=== PATIENT | male | born 1945 | race Caucasian/White ===

== ENCOUNTER 2017-08-05 09:32 | Inpatient (IN) ==
[2017-08-05] MEDS ORDERED: VANCOMYCIN INJ 1,000 MG in SODIUM CHLORIDE 0.9% 250 ML IV ONE (10:00)
[2017-08-05] MEDS ORDERED: diphenhydrAMINE CAP 25 MG CAPSULE PO ONE (10:00)
[2017-08-05] MEDS ORDERED: VANCOMYCIN 500 MG VIAL IRRIG ONE (10:00)
[2017-08-05] MEDS ORDERED: DIAZEPAM 5 MG TABLET PO ONE (10:00)
[2017-08-05] MEDS ORDERED: SODIUM CHLORIDE 0.9% 1,000 ML IV SCH ×2 (10:00)
[2017-08-05] MEDS ORDERED: diphenhydrAMINE CAP 25 MG CAPSULE ONE (12:58)
[2017-08-05] MEDS ORDERED: DIAZEPAM 5 MG TABLET ONE (12:58)
[2017-08-05] MEDS ORDERED: LIDOCAINE 1% 20 ML VIAL ONE (13:13)
[2017-08-05] MEDS ORDERED: VANCOMYCIN 500 MG VIAL ONE ×2 (13:17→13:57)
[2017-08-05] MEDS ORDERED: MIDAZOLAM 2 MG/2 ML VIAL ONE (13:29)
[2017-08-05] MEDS ORDERED: fentaNYL 100 MCG/2 ML VIAL ONE (13:29)
[2017-08-05] MEDS ORDERED: TISSUE ADHESIVE 1 EACH APPLICATOR TOP ONE (14:44)
[2017-08-05] MEDS ORDERED: ACETAMINOPHEN 325 MG TABLET PO PRN (15:02)
[2017-08-05] MEDS ORDERED: ALUMINUM/MAGNES/SIMETH MAX STR 30 ML UDCUP PO PRN (15:03)
[2017-08-05] MEDS ORDERED: ZALEPLON 5 MG CAPSULE PO PRN (15:03)
[2017-08-05] MEDS ORDERED: MAGNESIUM HYDROXIDE SUSP 30 ML UDCUP PO PRN (16:28)
[2017-08-05] MEDS ORDERED: ONDANSETRON 4 MG/2 ML VIAL IV PRN (16:29)
[2017-08-05] MEDS ORDERED: diphenhydrAMINE CAP 25 MG CAPSULE PO PRN (16:29)
[2017-08-05] MEDS: CALCIUM (CARBONATE) 600 MG TABLET PO SCH (16:53)
[2017-08-05] MEDS: AMIODARONE 200 MG TABLET PO SCH (21:48)
[2017-08-05] MEDS: AMITRIPTYLINE 75 MG TABLET PO SCH (21:49)
[2017-08-05] MEDS: DOCUSATE SODIUM 100 MG CAPSULE PO SCH (21:49)
[2017-08-05] MEDS: APIXABAN 5 MG TABLET PO SCH (21:49)
[2017-08-05] MEDS: POTASSIUM CITRATE 10 MEQ TABLET PO SCH (21:49)
[2017-08-05] MEDS: CARVEDILOL 6.25 MG TABLET PO SCH (21:49)
[2017-08-06] MEDS ORDERED: PHENOL 1.4% THROAT SPRAY 177 ML BOTTLE PO PRN (01:49)
[2017-08-06] MEDS ORDERED: CETIRIZINE 10 MG TABLET PO PRN (01:49)
[2017-08-06] MEDS ORDERED: OXYMETAZOLINE 0.05% NASAL SPRAY 15 ML BOTTLE BOTH NARES PRN (01:49)
[2017-08-06] MEDS: CALCIUM (CARBONATE) 600 MG TABLET PO SCH ×2 (08:44→19:08)
[2017-08-06] MEDS: PRAVASTATIN 40 MG TABLET PO SCH (08:45)
[2017-08-06] MEDS: FUROSEMIDE 40 MG TABLET PO SCH (08:45)
[2017-08-06] MEDS: ASPIRIN EC 81 MG TABLET PO SCH (08:45)
[2017-08-06] MEDS: OMEGA 3 ACID ETHYL ESTERS 1 GM CAPSULE PO SCH (08:45)
[2017-08-06] MEDS: DOCUSATE SODIUM 100 MG CAPSULE PO SCH ×2 (08:45→22:12)
[2017-08-06] MEDS: DILTIAZEM CD 180 MG CAPSULE PO SCH (08:45)
[2017-08-06] MEDS: AMIODARONE 200 MG TABLET PO SCH ×2 (08:45→22:12)
[2017-08-06] MEDS: MONTELUKAST 10 MG TABLET PO SCH (08:45)
[2017-08-06] MEDS: POTASSIUM CITRATE 10 MEQ TABLET PO SCH ×2 (08:45→22:13)
[2017-08-06] MEDS: DIGOXIN 0.125 MG TABLET PO SCH (08:45)
[2017-08-06] MEDS: PANTOPRAZOLE 40 MG TABLET PO SCH (08:45)
[2017-08-06] MEDS: CARVEDILOL 6.25 MG TABLET PO SCH ×2 (08:45→22:13)
[2017-08-06] MEDS: LISINOPRIL 10 MG TABLET PO SCH (08:45)
[2017-08-06] MEDS: CELECOXIB 200 MG CAPSULE PO SCH (08:46)
[2017-08-06] MEDS: FOLIC ACID 1 MG TABLET PO SCH (08:46)
[2017-08-06] MEDS: MULTIVITAMIN (CENTRUM) TABLET PO SCH (08:46)
[2017-08-06] MEDS: APIXABAN 5 MG TABLET PO SCH ×2 (08:46→22:12)
[2017-08-06] MEDS: FLUTICASONE 50 MCG NASAL SPRAY 16 GM BOTTLE BOTH NARES SCH (12:05)
[2017-08-06] MEDS ORDERED: MORPHINE 4 MG/1 ML VIAL IV PRN (17:09)
[2017-08-06] MEDS: AMITRIPTYLINE 75 MG TABLET PO SCH (22:13)
[2017-08-07 03:48] LABS: Basophils % 0.3 % (0.0-0.8); Eosinophils # 0.6 10*3/uL (0.0-0.87); Eosinophils % 6.2 % (0.00-10.9); Hematocrit 33.2 VOL% (42.0-52.0); Hemoglobin 11.3 GM/DL (14.0-18.0); Immature Granulocytes % 0.4 %; Immature Granulocytes Absolute 0.04 #; Lymphocytes # 1.8 10*3/uL (1.4-4.0); Lymphocytes % 17.7 % (21.2-54.2); Mean Corpuscular Hemoglobin 30 PG (27-34); Mean Platelet Volume 11.4 FL (9.6-12.0); Monocytes % 10.1 % (1.7-12.7); Neutrophils # 6.7 10*3/uL (1.4-7.4); Neutrophils % 65.3 % (38.7-73.9); Platelet Count 210 T/CUMM (130-400); Red Blood Count 3.73 MC/CUMM (3.8-5.5); Red Cell Distribution Width 12.9 % (9.3-17.3); White Blood Count 10.3 T/CUMM (4-12)
[2017-08-07 04:12] LABS: Calcium 8.4 MG/DL (8.5-10.1); Osmolality,Calculated 282.4 MOS/KG (273-304)
[2017-08-07] MEDS: AMIODARONE 200 MG TABLET PO SCH ×2 (09:06→21:03)
[2017-08-07] MEDS: POTASSIUM CITRATE 10 MEQ TABLET PO SCH ×2 (09:06→21:03)
[2017-08-07] MEDS: CALCIUM (CARBONATE) 600 MG TABLET PO SCH ×2 (09:06→16:44)
[2017-08-07] MEDS: MULTIVITAMIN (CENTRUM) TABLET PO SCH (09:06)
[2017-08-07] MEDS: FUROSEMIDE 40 MG TABLET PO SCH (09:07)
[2017-08-07] MEDS: CELECOXIB 200 MG CAPSULE PO SCH (09:07)
[2017-08-07] MEDS: MONTELUKAST 10 MG TABLET PO SCH (09:07)
[2017-08-07] MEDS: DOCUSATE SODIUM 100 MG CAPSULE PO SCH ×2 (09:07→21:03)
[2017-08-07] MEDS: PANTOPRAZOLE 40 MG TABLET PO SCH (09:07)
[2017-08-07] MEDS: OMEGA 3 ACID ETHYL ESTERS 1 GM CAPSULE PO SCH (09:07)
[2017-08-07] MEDS: ASPIRIN EC 81 MG TABLET PO SCH (09:07)
[2017-08-07] MEDS: FOLIC ACID 1 MG TABLET PO SCH (09:07)
[2017-08-07] MEDS: PRAVASTATIN 40 MG TABLET PO SCH (09:08)
[2017-08-07] MEDS: DILTIAZEM CD 180 MG CAPSULE PO SCH (09:08)
[2017-08-07] MEDS: APIXABAN 5 MG TABLET PO SCH ×2 (09:08→21:03)
[2017-08-07] MEDS: DIGOXIN 0.125 MG TABLET PO SCH (09:08)
[2017-08-07] MEDS: CARVEDILOL 6.25 MG TABLET PO SCH ×2 (09:08→21:03)
[2017-08-07] MEDS: LISINOPRIL 10 MG TABLET PO SCH (09:08)
[2017-08-07] MEDS: FLUTICASONE 50 MCG NASAL SPRAY 16 GM BOTTLE BOTH NARES SCH (15:42)
[2017-08-07] MEDS: AMITRIPTYLINE 75 MG TABLET PO SCH (21:03)
[2017-08-08] MEDS: DIGOXIN 0.125 MG TABLET PO SCH (09:35)
[2017-08-08] MEDS: MULTIVITAMIN (CENTRUM) TABLET PO SCH (09:35)
[2017-08-08] MEDS: CELECOXIB 200 MG CAPSULE PO SCH (09:35)
[2017-08-08] MEDS: AMIODARONE 200 MG TABLET PO SCH ×2 (09:36→20:24)
[2017-08-08] MEDS: POTASSIUM CITRATE 10 MEQ TABLET PO SCH ×2 (09:36→20:24)
[2017-08-08] MEDS: ASPIRIN EC 81 MG TABLET PO SCH (09:36)
[2017-08-08] MEDS: OMEGA 3 ACID ETHYL ESTERS 1 GM CAPSULE PO SCH (09:36)
[2017-08-08] MEDS: LISINOPRIL 10 MG TABLET PO SCH (09:36)
[2017-08-08] MEDS: MONTELUKAST 10 MG TABLET PO SCH (09:36)
[2017-08-08] MEDS: FUROSEMIDE 40 MG TABLET PO SCH (09:36)
[2017-08-08] MEDS: FOLIC ACID 1 MG TABLET PO SCH (09:36)
[2017-08-08] MEDS: PRAVASTATIN 40 MG TABLET PO SCH (09:36)
[2017-08-08] MEDS: CALCIUM (CARBONATE) 600 MG TABLET PO SCH ×2 (09:36→16:43)
[2017-08-08] MEDS: PANTOPRAZOLE 40 MG TABLET PO SCH (09:36)
[2017-08-08] MEDS: CARVEDILOL 6.25 MG TABLET PO SCH ×2 (09:37→20:24)
[2017-08-08] MEDS: APIXABAN 5 MG TABLET PO SCH ×2 (09:37→20:24)
[2017-08-08] MEDS: DILTIAZEM CD 180 MG CAPSULE PO SCH (09:37)
[2017-08-08] MEDS: DOCUSATE SODIUM 100 MG CAPSULE PO SCH ×2 (09:37→20:24)
[2017-08-08] MEDS: FLUTICASONE 50 MCG NASAL SPRAY 16 GM BOTTLE BOTH NARES SCH (09:50)
[2017-08-08] MEDS: AMITRIPTYLINE 75 MG TABLET PO SCH (20:24)
[2017-08-09] MEDS: DIGOXIN 0.125 MG TABLET PO SCH (08:31)
[2017-08-09] MEDS: ASPIRIN EC 81 MG TABLET PO SCH (08:31)
[2017-08-09] MEDS: CELECOXIB 200 MG CAPSULE PO SCH (08:32)
[2017-08-09] MEDS: AMIODARONE 200 MG TABLET PO SCH ×2 (08:32→20:54)
[2017-08-09] MEDS: OMEGA 3 ACID ETHYL ESTERS 1 GM CAPSULE PO SCH (08:32)
[2017-08-09] MEDS: PANTOPRAZOLE 40 MG TABLET PO SCH (08:32)
[2017-08-09] MEDS: CARVEDILOL 6.25 MG TABLET PO SCH ×2 (08:32→20:54)
[2017-08-09] MEDS: PRAVASTATIN 40 MG TABLET PO SCH (08:32)
[2017-08-09] MEDS: MULTIVITAMIN (CENTRUM) TABLET PO SCH (08:32)
[2017-08-09] MEDS: MONTELUKAST 10 MG TABLET PO SCH (08:32)
[2017-08-09] MEDS: FOLIC ACID 1 MG TABLET PO SCH (08:32)
[2017-08-09] MEDS: DOCUSATE SODIUM 100 MG CAPSULE PO SCH ×2 (08:32→20:53)
[2017-08-09] MEDS: POTASSIUM CITRATE 10 MEQ TABLET PO SCH ×2 (08:32→20:54)
[2017-08-09] MEDS: LISINOPRIL 10 MG TABLET PO SCH (08:32)
[2017-08-09] MEDS: DILTIAZEM CD 180 MG CAPSULE PO SCH (08:33)
[2017-08-09] MEDS: FLUTICASONE 50 MCG NASAL SPRAY 16 GM BOTTLE BOTH NARES SCH (08:33)
[2017-08-09] MEDS: APIXABAN 5 MG TABLET PO SCH ×2 (08:33→20:54)
[2017-08-09] MEDS: CALCIUM (CARBONATE) 600 MG TABLET PO SCH ×2 (08:33→16:26)
[2017-08-09] MEDS: FUROSEMIDE 40 MG TABLET PO SCH (08:33)
[2017-08-09] MEDS: AMITRIPTYLINE 75 MG TABLET PO SCH (20:54)
[2017-08-10] MEDS: DIGOXIN 0.125 MG TABLET PO SCH (09:44)
[2017-08-10] MEDS: APIXABAN 5 MG TABLET PO SCH (09:46)
[2017-08-10] MEDS: FOLIC ACID 1 MG TABLET PO SCH (09:46)
[2017-08-10] MEDS: CELECOXIB 200 MG CAPSULE PO SCH (09:46)
[2017-08-10] MEDS: MONTELUKAST 10 MG TABLET PO SCH (09:46)
[2017-08-10] MEDS: ASPIRIN EC 81 MG TABLET PO SCH (09:46)
[2017-08-10] MEDS: DOCUSATE SODIUM 100 MG CAPSULE PO SCH (09:46)
[2017-08-10] MEDS: CARVEDILOL 6.25 MG TABLET PO SCH (09:47)
[2017-08-10] MEDS: PRAVASTATIN 40 MG TABLET PO SCH (09:47)
[2017-08-10] MEDS: CALCIUM (CARBONATE) 600 MG TABLET PO SCH (09:47)
[2017-08-10] MEDS: PANTOPRAZOLE 40 MG TABLET PO SCH (09:48)
[2017-08-10] MEDS: AMIODARONE 200 MG TABLET PO SCH (09:48)
[2017-08-10] MEDS: LISINOPRIL 10 MG TABLET PO SCH (09:48)
[2017-08-10] MEDS: FUROSEMIDE 40 MG TABLET PO SCH (09:48)
[2017-08-10] MEDS: MULTIVITAMIN (CENTRUM) TABLET PO SCH (09:48)
[2017-08-10] MEDS: OMEGA 3 ACID ETHYL ESTERS 1 GM CAPSULE PO SCH (09:49)
[2017-08-10] MEDS: DILTIAZEM CD 180 MG CAPSULE PO SCH (09:49)
[2017-08-10] MEDS: POTASSIUM CITRATE 10 MEQ TABLET PO SCH (10:05)
[2017-08-10] MEDS: FLUTICASONE 50 MCG NASAL SPRAY 16 GM BOTTLE BOTH NARES SCH (10:07)
[2017-08-10 12:01] VITALS: BP 131/66
== END 2017-08-10 14:30 | disposition home or self-care (01) | DRG 243 ==
LOC: N.CL 09:32 → N.TELEN 15:30 → N.CC 08-06 16:59 → N.TELEN 08-07 11:17
PROVIDERS: ADMIT Internal Medicine Cardiovascular Disease; ATTEND Internal Medicine Cardiovascular Disease

== ENCOUNTER 2020-05-02 11:19 | Observation (INO) ==
[2020-05-02] MEDS ORDERED: SODIUM CHLORIDE 0.9% 500 ML IV STA (11:29)
[2020-05-02 12:17] LABS: Basophils # 0.1 10*3/uL (0.0-0.2); Basophils % 0.6 % (0.0-0.8); Eosinophils % 0.2 % (0.00-10.9); Hematocrit 36.3 VOL% (42.0-52.0); Immature Granulocytes % 6.1 %; Lymphocytes % 6.3 % (21.2-54.2); Mean Corpuscular HGB Conc 33.1 GM/DL (32-36); Mean Platelet Volume 9.4 FL (9.6-12.0); Monocytes % 5.8 % (1.7-12.7); Platelet Count 334 T/CUMM (130-400); Red Blood Count 3.99 MC/CUMM (3.8-5.5); Red Cell Distribution Width 13.5 % (9.3-17.3); White Blood Count 16.4 T/CUMM (4-12)
[2020-05-02 12:28] LABS: INR 1.1; PT Patient Result 11.9 SECS (9.8-11.9); Partial Thromboplastin Time 30.4 SECS (23.9-33.8)
[2020-05-02 12:38] LABS: Alanine Aminotransferase 39 U/L (16-61); Albumin 2.3 G/DL (3.4-5.0); Alkaline Phosphatase 86 U/L (45-117); Aspartate Amino Transferase 45 U/L (0-37); Bilirubin,Total < 0.39 MG/DL (0.2-1.0); Blood Urea Nitrogen 20 MG/DL (7-18); Carbon Dioxide 33 MMOL/L (21-32); Estimated Glom Filtration Rate 71 ML/MIN; Glucose 160 MG/DL (74-106); Osmolality,Calculated 265.8 MOS/KG (273-304); Potassium 4.7 MMOL/L (3.5-5.1); Sodium 130 MMOL/L (136-145)
[2020-05-02] MEDS ORDERED: ONDANSETRON 4 MG/2 ML VIAL IV PRN (12:45)
[2020-05-02] MEDS ORDERED: ACETAMINOPHEN 325 MG TABLET PO PRN (12:45)
[2020-05-02 13:34] LABS: Band Neutrophils 2 % (0-10); Lymphocytes 9 % (20-55); Segmented Neutrophils 86 % (50-85); Total Cells Counted 100
[2020-05-02 13:35] LABS: Reactive Lymphocytes Few
[2020-05-02 13:37] LABS: Hypochromasia Slight; Platelet Estimate Normal
[2020-05-02] MEDS: SODIUM CHLORIDE 0.9% 1,000 ML IV SCH (14:00)
[2020-05-02 17:30] LABS: Bilirubin,Urine Negative (Negative); Blood, Urine Negative (Negative); Glucose,Urine (UA) Negative (Negative); Ketones,Urine Negative (Negative); Mucus,Urine Occasional /LPF (Occasional); Nitrite,Urine Negative (Negative); Protein,Urine Negative; RBC,Urine 2 /HPF (0-4); Urine Appearance CLEAR (Clear); Urine Color Yellow (Yellow); Urine Specific Gravity 1.009 (1.001-1.035); Urine Urobilinogen < 2.0 EU/DL (0.2-1.0); WBC,Urine 2 /HPF (0-6)
[2020-05-02 17:43] LABS: Barbiturates Screen,Urine Negative (Negative); Benzodiazepines Screen,Urine Negative (Negative); Cannabinoid Screen,Urine Negative (Negative); Opiate Screen,Urine Positive (Negative); Phencyclidine Screen,Urine Negative (Negative)
[2020-05-02] MEDS: DOCUSATE SODIUM 100 MG CAPSULE PO SCH ×2 (21:26→21:52)
[2020-05-02] MEDS: AMITRIPTYLINE 75 MG TABLET PO SCH (21:26)
[2020-05-02] MEDS: APIXABAN 5 MG TABLET PO SCH (21:26)
[2020-05-02] MEDS: POTASSIUM CITRATE 10 MEQ TABLET PO SCH (21:26)
[2020-05-02] MEDS: AMIODARONE 200 MG TABLET PO SCH (21:52)
[2020-05-02] MEDS: carvediloL 6.25 MG TABLET PO SCH (21:52)
[2020-05-03] MEDS: ALBUTEROL/IPRATROPIUM 3 ML NEB RESP TX SCH ×4 (01:10→19:18)
[2020-05-03 06:05] LABS: Basophils # 0.1 10*3/uL (0.0-0.2); Basophils % 0.8 % (0.0-0.8); Eosinophils # 0.2 10*3/uL (0.0-0.87); Eosinophils % 1.5 % (0.00-10.9); Hematocrit 28.1 VOL% (42.0-52.0); Immature Granulocytes % 6.8 %; Lymphocytes # 1.8 10*3/uL (1.4-4.0); Lymphocytes % 13.6 % (21.2-54.2); Mean Corpuscular HGB Conc 34.2 GM/DL (32-36); Mean Corpuscular Volume 89.5 FL (87-102); Mean Platelet Volume 9.6 FL (9.6-12.0); Monocytes % 10.8 % (1.7-12.7); Neutrophils % 66.5 % (38.7-73.9); Platelet Count 298 T/CUMM (130-400); Red Cell Distribution Width 14.2 % (9.3-17.3); White Blood Count 13.1 T/CUMM (4-12)
[2020-05-03 06:13] LABS: Hemoglobin 9.6 GM/DL (14.0-18.0); Red Blood Count 3.14 MC/CUMM (3.8-5.5)
[2020-05-03] MEDS: SODIUM CHLORIDE 0.9% 1,000 ML IV SCH ×2 (06:19→07:35)
[2020-05-03 06:21] LABS: Band Neutrophils 1 % (0-10); Eosinophils 2 % (0-10); Hypochromasia Slight; Lymphocytes 16 % (20-55); Microcytosis 1+; Platelet Estimate Normal; Segmented Neutrophils 77 % (50-85); Total Cells Counted 100
[2020-05-03 06:28] LABS: Albumin 1.9 G/DL (3.4-5.0); Bilirubin,Total 0.5 MG/DL (0.2-1.0); Calcium 8.5 MG/DL (8.5-10.1); Osmolality,Calculated 269.2 MOS/KG (273-304); Potassium 3.5 MMOL/L (3.5-5.1); Risk Ratio 2.59; Thyroid Stimulating Hormone 0.274 uIU/ml (0.358-3.74); Total Protein 5.6 G/DL (6.4-8.2); VLDL CHOLESTEROL 17.8 MG/DL
[2020-05-03] MEDS ORDERED: SODIUM CHLORIDE 0.9% 1,000 ML IV SCH (08:00)
[2020-05-03] MEDS: metOLazone 5 MG TABLET PO SCH (08:13)
[2020-05-03] MEDS: OMEGA 3 ACID ETHYL ESTERS 1 GM CAPSULE PO SCH (08:13)
[2020-05-03] MEDS: carvediloL 6.25 MG TABLET PO SCH ×2 (08:13→17:15)
[2020-05-03] MEDS: DILTIAZEM CD 180 MG CAPSULE PO SCH (08:13)
[2020-05-03] MEDS: CALCIUM (CARBONATE) 600 MG TABLET PO SCH ×2 (08:14→17:15)
[2020-05-03] MEDS: FOLIC ACID 1 MG TABLET PO SCH (08:14)
[2020-05-03] MEDS: CELECOXIB 200 MG CAPSULE PO SCH (08:14)
[2020-05-03] MEDS: MONTELUKAST 10 MG TABLET PO SCH (08:14)
[2020-05-03] MEDS: APIXABAN 5 MG TABLET PO SCH ×2 (08:15→21:02)
[2020-05-03] MEDS: DOCUSATE SODIUM 100 MG CAPSULE PO SCH ×4 (08:15→22:30)
[2020-05-03] MEDS: ASPIRIN EC 81 MG TABLET PO SCH (08:15)
[2020-05-03] MEDS: POTASSIUM CITRATE 10 MEQ TABLET PO SCH ×2 (08:15→21:02)
[2020-05-03] MEDS: FUROSEMIDE 20 MG/2 ML VIAL IV SCH (08:16)
[2020-05-03] MEDS: PANTOPRAZOLE 40 MG TABLET PO SCH (08:16)
[2020-05-03] MEDS: AMIODARONE 200 MG TABLET PO SCH ×2 (08:16→21:02)
[2020-05-03] MEDS ORDERED: FUROSEMIDE 40 MG TABLET PO SCH (09:00)
[2020-05-03] MEDS ORDERED: lisinopriL 10 MG TABLET PO SCH (09:00)
[2020-05-03] MEDS ORDERED: DIGOXIN 0.125 MG TABLET PO SCH (09:00)
[2020-05-03] MEDS ORDERED: RABEPRAZOLE 20 MG PO SCH (09:00)
[2020-05-03] MEDS: MAGNESIUM SULF INJ 2 GM in SODIUM CHLORIDE 0.9% 1,000 ML IV SCH ×2 (12:09→21:54)
[2020-05-03] MEDS ORDERED: TAMSULOSIN 0.4 MG CAPSULE PO SCH (21:00)
[2020-05-03] MEDS: AMITRIPTYLINE 75 MG TABLET PO SCH (21:02)
[2020-05-03] MEDS: SIMVASTATIN 40 MG TABLET PO SCH (21:02)
[2020-05-04] MEDS: ALBUTEROL/IPRATROPIUM 3 ML NEB RESP TX SCH ×3 (01:05→13:00)
[2020-05-04] MEDS: MAGNESIUM SULF INJ 2 GM in SODIUM CHLORIDE 0.9% 1,000 ML IV SCH ×2 (01:49→13:19)
[2020-05-04 05:17] LABS: Basophils # 0.1 10*3/uL (0.0-0.2); Basophils % 0.9 % (0.0-0.8); Eosinophils # 0.4 10*3/uL (0.0-0.87); Eosinophils % 2.7 % (0.00-10.9); Hematocrit 27.8 VOL% (42.0-52.0); Hemoglobin 9.4 GM/DL (14.0-18.0); Immature Granulocytes % 5.1 %; Lymphocytes # 1.9 10*3/uL (1.4-4.0); Lymphocytes % 13.8 % (21.2-54.2); Mean Corpuscular HGB Conc 33.8 GM/DL (32-36); Mean Corpuscular Volume 89.7 FL (87-102); Mean Platelet Volume 9.2 FL (9.6-12.0); Monocytes % 11.1 % (1.7-12.7); Neutrophils % 66.4 % (38.7-73.9); Platelet Count 289 T/CUMM (130-400); Red Cell Distribution Width 14.3 % (9.3-17.3); White Blood Count 13.8 T/CUMM (4-12)
[2020-05-04 05:42] LABS: Band Neutrophils 1 % (0-10); Eosinophils 2 % (0-10); Hypochromasia 1+; Lymphocytes 10 % (20-55); Metamyelocytes 1 %; Myelocytes 2 %; Segmented Neutrophils 74 % (50-85); Total Cells Counted 100
[2020-05-04 05:43] LABS: Albumin 2.1 G/DL (3.4-5.0); Bilirubin,Total 0.8 MG/DL (0.2-1.0); Calcium 8.6 MG/DL (8.5-10.1); Free T4 (Free Thyroxine) 1.57 NG/DL (0.76-1.46); Microcytosis 1+; Osmolality,Calculated 271.1 MOS/KG (273-304); Platelet Estimate Normal; Potassium 3.7 MMOL/L (3.5-5.1); Total Protein 5.6 G/DL (6.4-8.2)
[2020-05-04] MEDS: FUROSEMIDE 20 MG/2 ML VIAL IV SCH (08:53)
[2020-05-04] MEDS: DOCUSATE SODIUM 100 MG CAPSULE PO SCH ×4 (08:54→21:11)
[2020-05-04] MEDS: MONTELUKAST 10 MG TABLET PO SCH (08:54)
[2020-05-04] MEDS: DILTIAZEM CD 180 MG CAPSULE PO SCH (08:54)
[2020-05-04] MEDS: carvediloL 6.25 MG TABLET PO SCH ×2 (08:54→17:45)
[2020-05-04] MEDS: APIXABAN 5 MG TABLET PO SCH ×2 (08:54→20:32)
[2020-05-04] MEDS: AMIODARONE 200 MG TABLET PO SCH ×2 (08:54→20:32)
[2020-05-04] MEDS: POTASSIUM CITRATE 10 MEQ TABLET PO SCH ×2 (08:54→20:31)
[2020-05-04] MEDS: FOLIC ACID 1 MG TABLET PO SCH (08:54)
[2020-05-04] MEDS: metOLazone 5 MG TABLET PO SCH (08:54)
[2020-05-04] MEDS: PANTOPRAZOLE 40 MG TABLET PO SCH (08:54)
[2020-05-04] MEDS: OMEGA 3 ACID ETHYL ESTERS 1 GM CAPSULE PO SCH (08:54)
[2020-05-04] MEDS: CALCIUM (CARBONATE) 600 MG TABLET PO SCH ×2 (08:55→17:45)
[2020-05-04] MEDS: ASPIRIN EC 81 MG TABLET PO SCH (08:55)
[2020-05-04] MEDS: CELECOXIB 200 MG CAPSULE PO SCH (08:55)
[2020-05-04] MEDS ORDERED: ALBUTEROL 2.5 MG/3 ML NEB RESP TX PRN (14:09)
[2020-05-04] MEDS ORDERED: guaiFENesin/CODEINE 5 ML LIQUID PO PRN (14:14)
[2020-05-04] MEDS: AMITRIPTYLINE 75 MG TABLET PO SCH (20:31)
[2020-05-04] MEDS: SIMVASTATIN 40 MG TABLET PO SCH (20:32)
[2020-05-04] MEDS: TAMSULOSIN 0.4 MG CAPSULE PO SCH (20:32)
[2020-05-05] MEDS: MAGNESIUM SULF INJ 2 GM in SODIUM CHLORIDE 0.9% 1,000 ML IV SCH ×2 (00:55→04:27)
[2020-05-05 05:53] LABS: Basophils # 0.1 10*3/uL (0.0-0.2); Basophils % 0.7 % (0.0-0.8); Eosinophils # 0.4 10*3/uL (0.0-0.87); Eosinophils % 2.7 % (0.00-10.9); Hemoglobin 9.3 GM/DL (14.0-18.0); Immature Granulocytes % 5.2 %; Immature Granulocytes Absolute 0.68 #; Lymphocytes # 1.7 10*3/uL (1.4-4.0); Lymphocytes % 12.7 % (21.2-54.2); Mean Corpuscular HGB Conc 33.2 GM/DL (32-36); Mean Corpuscular Volume 88.9 FL (87-102); Mean Platelet Volume 9.5 FL (9.6-12.0); Monocytes % 10.7 % (1.7-12.7); Platelet Count 288 T/CUMM (130-400); Red Blood Count 3.15 MC/CUMM (3.8-5.5); Red Cell Distribution Width 14.1 % (9.3-17.3); White Blood Count 13.1 T/CUMM (4-12)
[2020-05-05 06:05] LABS: Calcium 8.6 MG/DL (8.5-10.1); Osmolality,Calculated 266.4 MOS/KG (273-304); Potassium 3.6 MMOL/L (3.5-5.1)
[2020-05-05 06:47] LABS: Lymphocytes 9 % (20-55); Metamyelocytes 2 %; Platelet Estimate Normal; Polychromasia Slight; Segmented Neutrophils 87 % (50-85); Total Cells Counted 100
[2020-05-05] MEDS: DOCUSATE SODIUM 100 MG CAPSULE PO SCH ×2 (09:28→10:46)
[2020-05-05] MEDS: FOLIC ACID 1 MG TABLET PO SCH (09:28)
[2020-05-05] MEDS: MONTELUKAST 10 MG TABLET PO SCH (09:28)
[2020-05-05] MEDS: OMEGA 3 ACID ETHYL ESTERS 1 GM CAPSULE PO SCH (09:28)
[2020-05-05] MEDS: POTASSIUM CITRATE 10 MEQ TABLET PO SCH (09:28)
[2020-05-05] MEDS: FUROSEMIDE 20 MG/2 ML VIAL IV SCH (09:28)
[2020-05-05] MEDS: AMIODARONE 200 MG TABLET PO SCH (09:29)
[2020-05-05] MEDS: CALCIUM (CARBONATE) 600 MG TABLET PO SCH (09:29)
[2020-05-05] MEDS: DILTIAZEM CD 180 MG CAPSULE PO SCH (09:29)
[2020-05-05] MEDS: APIXABAN 5 MG TABLET PO SCH (09:29)
[2020-05-05] MEDS: ASPIRIN EC 81 MG TABLET PO SCH (09:29)
[2020-05-05] MEDS: TAMSULOSIN 0.4 MG CAPSULE PO SCH (09:29)
[2020-05-05] MEDS: carvediloL 6.25 MG TABLET PO SCH (09:29)
[2020-05-05] MEDS: PANTOPRAZOLE 40 MG TABLET PO SCH (09:29)
[2020-05-05] MEDS: CELECOXIB 200 MG CAPSULE PO SCH (09:29)
[2020-05-05] MEDS: metOLazone 5 MG TABLET PO SCH (09:38)
[2020-05-05 11:50] VITALS: BP 135/65
== END 2020-05-05 13:30 | disposition swing bed (61) ==
LOC: EDBD → EDUNIT# → N.EDINP 11:19 → N.ED 11:19 → N.3E 14:51
PROVIDERS: ADMIT Family Medicine; ATTEND Family Medicine

== ENCOUNTER 2020-05-09 17:10 | Inpatient (IN) ==
[2020-05-09] MEDS ORDERED: PANTOPRAZOLE 40 MG VIAL IV STA (17:26)
[2020-05-09] MEDS ORDERED: SODIUM CHLORIDE 0.9% 500 ML IV STA (17:39)
[2020-05-09 18:18] LABS: Basophils # 0.1 10*3/uL (0.0-0.2); Basophils % 0.4 % (0.0-0.8); Eosinophils # 0.2 10*3/uL (0.0-0.87); Eosinophils % 1.2 % (0.00-10.9); Hematocrit 27.8 VOL% (42.0-52.0); Hemoglobin 9.5 GM/DL (14.0-18.0); Immature Granulocytes % 6.2 %; Lymphocytes # 1.9 10*3/uL (1.4-4.0); Lymphocytes % 11.6 % (21.2-54.2); Mean Corpuscular HGB Conc 34.2 GM/DL (32-36); Mean Corpuscular Volume 87.4 FL (87-102); Mean Platelet Volume 8.8 FL (9.6-12.0); Monocytes % 11.7 % (1.7-12.7); Neutrophils % 68.9 % (38.7-73.9); Platelet Count 424 T/CUMM (130-400); Red Blood Count 3.18 MC/CUMM (3.8-5.5); Red Cell Distribution Width 13.6 % (9.3-17.3); White Blood Count 16.2 T/CUMM (4-12)
[2020-05-09 18:28] LABS: INR 1.3; PT Patient Result 13.5 SECS (9.8-11.9)
[2020-05-09 18:41] LABS: Alanine Aminotransferase 119 U/L (16-61); Albumin 2.2 G/DL (3.4-5.0); Alkaline Phosphatase 71 U/L (45-117); Aspartate Amino Transferase 104 U/L (0-37); Bilirubin,Total < 0.39 MG/DL (0.2-1.0); Blood Urea Nitrogen 37 MG/DL (7-18); Calcium 8.7 MG/DL (8.5-10.1); Carbon Dioxide 31 MMOL/L (21-32); Estimated Glom Filtration Rate 51 ML/MIN; Glucose 83 MG/DL (74-106); Osmolality,Calculated 264.1 MOS/KG (273-304); Potassium 3.5 MMOL/L (3.5-5.1); Sodium 128 MMOL/L (136-145); Total Protein 6.3 G/DL (6.4-8.2)
[2020-05-09] MEDS ORDERED: LEVOFLOXACIN INJ 500 MG in PREMIX 1 EACH IV STA (19:38)
[2020-05-09] MEDS ORDERED: ACETAMINOPHEN 325 MG TABLET PO PRN (20:39)
[2020-05-09] MEDS: DOCUSATE SODIUM 100 MG CAPSULE PO SCH (22:21)
[2020-05-09] MEDS: SODIUM CHLORIDE 0.9% 1,000 ML IV SCH (22:21)
[2020-05-10 05:06] LABS: Basophils # 0.1 10*3/uL (0.0-0.2); Basophils % 0.9 % (0.0-0.8); Eosinophils # 0.2 10*3/uL (0.0-0.87); Hematocrit 28.3 VOL% (42.0-52.0); Hemoglobin 9.6 GM/DL (14.0-18.0); Immature Granulocytes % 7.1 %; Immature Granulocytes Absolute 1.09 #; Lymphocytes # 1.5 10*3/uL (1.4-4.0); Lymphocytes % 9.7 % (21.2-54.2); Mean Corpuscular HGB Conc 33.9 GM/DL (32-36); Mean Corpuscular Volume 86.8 FL (87-102); Mean Platelet Volume 9.1 FL (9.6-12.0); Monocytes % 10.8 % (1.7-12.7); Neutrophils % 70.5 % (38.7-73.9); Platelet Count 433 T/CUMM (130-400); Red Blood Count 3.26 MC/CUMM (3.8-5.5); Red Cell Distribution Width 13.8 % (9.3-17.3); White Blood Count 15.3 T/CUMM (4-12)
[2020-05-10 05:37] LABS: Band Neutrophils 1 % (0-10); Eosinophils 3 % (0-10); Hypochromasia 1+; Lymphocytes 9 % (20-55); Microcytosis 1+; Platelet Estimate Adequate; Segmented Neutrophils 78 % (50-85); Total Cells Counted 100
[2020-05-10 05:44] LABS: Albumin 2.2 G/DL (3.4-5.0); Bilirubin,Total 0.4 MG/DL (0.2-1.0); Calcium 9.1 MG/DL (8.5-10.1); Osmolality,Calculated 263.2 MOS/KG (273-304); Potassium 3.8 MMOL/L (3.5-5.1); Total Protein 6.3 G/DL (6.4-8.2)
[2020-05-10] MEDS ORDERED: RABEPRAZOLE 20 MG PO SCH (09:00)
[2020-05-10] MEDS: ANORO INH SCH (09:06)
[2020-05-10] MEDS: AMIODARONE 200 MG TABLET PO SCH ×2 (09:09→20:26)
[2020-05-10] MEDS: DIGOXIN 0.25 MG TABLET PO SCH (09:09)
[2020-05-10] MEDS: DOCUSATE SODIUM 100 MG CAPSULE PO SCH ×4 (09:09→21:12)
[2020-05-10] MEDS: metOLazone 5 MG TABLET PO SCH (09:10)
[2020-05-10] MEDS: SIMVASTATIN 40 MG TABLET PO SCH (09:10)
[2020-05-10] MEDS: lisinopriL 10 MG TABLET PO SCH (09:10)
[2020-05-10] MEDS: DILTIAZEM CD 180 MG CAPSULE PO SCH (09:10)
[2020-05-10] MEDS: ASPIRIN EC 81 MG TABLET PO SCH (09:10)
[2020-05-10] MEDS: MONTELUKAST 10 MG TABLET PO SCH (09:10)
[2020-05-10] MEDS: FUROSEMIDE 40 MG TABLET PO SCH (09:10)
[2020-05-10] MEDS: MULTIVITAMIN (CENTRUM) TABLET PO SCH (09:11)
[2020-05-10] MEDS: CELECOXIB 200 MG CAPSULE PO SCH (09:11)
[2020-05-10] MEDS: CALCIUM (CARBONATE) 600 MG TABLET PO SCH ×2 (09:11→20:26)
[2020-05-10] MEDS: APIXABAN 5 MG TABLET PO SCH ×2 (09:11→21:13)
[2020-05-10] MEDS: FOLIC ACID 1 MG TABLET PO SCH (09:12)
[2020-05-10] MEDS: PANTOPRAZOLE 40 MG VIAL IV SCH (09:12)
[2020-05-10] MEDS: OMEGA 3 ACID ETHYL ESTERS 1 GM CAPSULE PO SCH (09:13)
[2020-05-10] MEDS: POTASSIUM CITRATE 10 MEQ TABLET PO SCH ×2 (09:13→20:26)
[2020-05-10] MEDS: ALBUTEROL 2.5 MG/3 ML NEB RESP TX PRN (09:24)
[2020-05-10] MEDS: SODIUM CHLORIDE 0.9% 1,000 ML IV SCH (09:55)
[2020-05-10] MEDS: carvediloL 6.25 MG TABLET PO SCH (16:17)
[2020-05-10] MEDS: AMITRIPTYLINE 75 MG TABLET PO SCH (20:26)
[2020-05-10] MEDS: ZINC OXIDE 16% PASTE 57 GM TUBE TOP SCH (21:13)
[2020-05-11] MEDS: SODIUM CHLORIDE 0.9% 1,000 ML IV SCH (03:40)
[2020-05-11 06:17] LABS: Basophils # 0.1 10*3/uL (0.0-0.2); Basophils % 0.5 % (0.0-0.8); Eosinophils # 0.2 10*3/uL (0.0-0.87); Eosinophils % 1.5 % (0.00-10.9); Hematocrit 26.2 VOL% (42.0-52.0); Hemoglobin 8.8 GM/DL (14.0-18.0); Immature Granulocytes % 5.3 %; Immature Granulocytes Absolute 0.67 #; Lymphocytes # 1.4 10*3/uL (1.4-4.0); Lymphocytes % 10.8 % (21.2-54.2); Mean Corpuscular HGB Conc 33.6 GM/DL (32-36); Mean Corpuscular Volume 88.5 FL (87-102); Mean Platelet Volume 8.9 FL (9.6-12.0); Monocytes % 12.5 % (1.7-12.7); Neutrophils % 69.4 % (38.7-73.9); Platelet Count 383 T/CUMM (130-400); Red Blood Count 2.96 MC/CUMM (3.8-5.5); White Blood Count 12.7 T/CUMM (4-12)
[2020-05-11 06:40] LABS: Band Neutrophils 5 % (0-10); Eosinophils 1 % (0-10); Lymphocytes 10 % (20-55); Platelet Estimate Normal; Segmented Neutrophils 71 % (50-85); Total Cells Counted 100
[2020-05-11 06:41] LABS: Anisocytosis 2+; Macrocytosis Slight
[2020-05-11 06:52] LABS: Bilirubin,Total 0.6 MG/DL (0.2-1.0); Calcium 8.6 MG/DL (8.5-10.1); Osmolality,Calculated 264.8 MOS/KG (273-304); Thyroid Stimulating Hormone 0.338 uIU/ml (0.358-3.74); Total Protein 5.7 G/DL (6.4-8.2)
[2020-05-11] MEDS: ANORO INH SCH (08:52)
[2020-05-11] MEDS: ASPIRIN EC 81 MG TABLET PO SCH (09:09)
[2020-05-11] MEDS: CELECOXIB 200 MG CAPSULE PO SCH (09:09)
[2020-05-11] MEDS: DILTIAZEM CD 180 MG CAPSULE PO SCH (09:09)
[2020-05-11] MEDS: AMIODARONE 200 MG TABLET PO SCH ×2 (09:09→20:49)
[2020-05-11] MEDS: MULTIVITAMIN (CENTRUM) TABLET PO SCH (09:09)
[2020-05-11] MEDS: OMEGA 3 ACID ETHYL ESTERS 1 GM CAPSULE PO SCH (09:10)
[2020-05-11] MEDS: carvediloL 6.25 MG TABLET PO SCH ×2 (09:10→16:11)
[2020-05-11] MEDS: MONTELUKAST 10 MG TABLET PO SCH (09:10)
[2020-05-11] MEDS: APIXABAN 5 MG TABLET PO SCH (09:10)
[2020-05-11] MEDS: POTASSIUM CITRATE 10 MEQ TABLET PO SCH ×2 (09:10→20:49)
[2020-05-11] MEDS: FOLIC ACID 1 MG TABLET PO SCH (09:10)
[2020-05-11] MEDS: lisinopriL 10 MG TABLET PO SCH (09:10)
[2020-05-11] MEDS: SIMVASTATIN 40 MG TABLET PO SCH (09:10)
[2020-05-11] MEDS: CALCIUM (CARBONATE) 600 MG TABLET PO SCH ×2 (09:10→20:49)
[2020-05-11] MEDS: FUROSEMIDE 40 MG TABLET PO SCH (09:10)
[2020-05-11] MEDS: DIGOXIN 0.25 MG TABLET PO SCH (09:10)
[2020-05-11] MEDS: SODIUM CHLOR 0.9% KCL 20 MEQ 20 MEQ/1,000 ML BAG IV SCH ×2 (09:11→22:36)
[2020-05-11] MEDS: ZINC OXIDE 16% PASTE 57 GM TUBE TOP SCH ×2 (09:11→20:51)
[2020-05-11] MEDS: metOLazone 5 MG TABLET PO SCH (09:11)
[2020-05-11] MEDS: DOCUSATE SODIUM 100 MG CAPSULE PO SCH ×4 (09:11→20:50)
[2020-05-11] MEDS: PANTOPRAZOLE 40 MG VIAL IV SCH (09:11)
[2020-05-11] MEDS: AMITRIPTYLINE 75 MG TABLET PO SCH (20:49)
[2020-05-12 04:58] LABS: Basophils # 0.1 10*3/uL (0.0-0.2); Basophils % 0.5 % (0.0-0.8); Eosinophils # 0.2 10*3/uL (0.0-0.87); Eosinophils % 1.6 % (0.00-10.9); Hematocrit 26.6 VOL% (42.0-52.0); Hemoglobin 8.8 GM/DL (14.0-18.0); Immature Granulocytes % 6.1 %; Immature Granulocytes Absolute 0.85 #; Lymphocytes # 1.5 10*3/uL (1.4-4.0); Mean Corpuscular HGB Conc 33.1 GM/DL (32-36); Mean Corpuscular Volume 89.9 FL (87-102); Monocytes % 13.2 % (1.7-12.7); Neutrophils % 67.6 % (38.7-73.9); Platelet Count 424 T/CUMM (130-400); Red Blood Count 2.96 MC/CUMM (3.8-5.5); Red Cell Distribution Width 13.9 % (9.3-17.3)
[2020-05-12 05:27] LABS: Calcium 8.5 MG/DL (8.5-10.1); Osmolality,Calculated 260.9 MOS/KG (273-304); Potassium 3.8 MMOL/L (3.5-5.1)
[2020-05-12 07:01] LABS: Band Neutrophils 2 % (0-10); Eosinophils 1 % (0-10); Lymphocytes 9 % (20-55); Platelet Estimate Increased; Segmented Neutrophils 83 % (50-85); Total Cells Counted 100
[2020-05-12 07:02] LABS: Hypochromasia Slight
[2020-05-12] MEDS: MONTELUKAST 10 MG TABLET PO SCH (08:24)
[2020-05-12] MEDS: CALCIUM (CARBONATE) 600 MG TABLET PO SCH ×2 (08:24→20:25)
[2020-05-12] MEDS: POTASSIUM CITRATE 10 MEQ TABLET PO SCH ×2 (08:25→20:25)
[2020-05-12] MEDS: DOCUSATE SODIUM 100 MG CAPSULE PO SCH ×4 (08:25→20:25)
[2020-05-12] MEDS: CELECOXIB 200 MG CAPSULE PO SCH (08:25)
[2020-05-12] MEDS: DILTIAZEM CD 180 MG CAPSULE PO SCH (08:26)
[2020-05-12] MEDS: FOLIC ACID 1 MG TABLET PO SCH (08:26)
[2020-05-12] MEDS: MULTIVITAMIN (CENTRUM) TABLET PO SCH (08:26)
[2020-05-12] MEDS: AMIODARONE 200 MG TABLET PO SCH ×2 (08:26→20:25)
[2020-05-12] MEDS: OMEGA 3 ACID ETHYL ESTERS 1 GM CAPSULE PO SCH (08:26)
[2020-05-12] MEDS: SIMVASTATIN 40 MG TABLET PO SCH (08:27)
[2020-05-12] MEDS: lisinopriL 10 MG TABLET PO SCH (08:27)
[2020-05-12] MEDS: metOLazone 5 MG TABLET PO SCH (08:27)
[2020-05-12] MEDS: DIGOXIN 0.25 MG TABLET PO SCH (08:27)
[2020-05-12] MEDS: carvediloL 6.25 MG TABLET PO SCH ×2 (08:28→16:14)
[2020-05-12] MEDS: FUROSEMIDE 40 MG TABLET PO SCH (08:28)
[2020-05-12] MEDS: ASPIRIN EC 81 MG TABLET PO SCH (08:28)
[2020-05-12] MEDS: PANTOPRAZOLE 40 MG VIAL IV SCH (08:29)
[2020-05-12] MEDS: ZINC OXIDE 16% PASTE 57 GM TUBE TOP SCH ×2 (08:36→20:24)
[2020-05-12] MEDS: ANORO INH SCH (08:36)
[2020-05-12] MEDS: SODIUM CHLOR 0.9% KCL 20 MEQ 20 MEQ/1,000 ML BAG IV SCH (12:13)
[2020-05-12] MEDS: AMITRIPTYLINE 75 MG TABLET PO SCH (20:25)
[2020-05-13] MEDS: SODIUM CHLOR 0.9% KCL 20 MEQ 20 MEQ/1,000 ML BAG IV SCH ×2 (02:50→15:01)
[2020-05-13 05:48] LABS: Basophils # 0.1 10*3/uL (0.0-0.2); Basophils % 0.9 % (0.0-0.8); Eosinophils # 0.2 10*3/uL (0.0-0.87); Hematocrit 26.3 VOL% (42.0-52.0); Hemoglobin 8.9 GM/DL (14.0-18.0); Immature Granulocytes % 5.1 %; Immature Granulocytes Absolute 0.54 #; Lymphocytes # 1.7 10*3/uL (1.4-4.0); Lymphocytes % 15.8 % (21.2-54.2); Mean Corpuscular HGB Conc 33.8 GM/DL (32-36); Mean Platelet Volume 9.6 FL (9.6-12.0); Monocytes % 13.1 % (1.7-12.7); Neutrophils % 63.1 % (38.7-73.9); Platelet Count 414 T/CUMM (130-400); Red Blood Count 2.99 MC/CUMM (3.8-5.5); Red Cell Distribution Width 14.2 % (9.3-17.3); White Blood Count 10.7 T/CUMM (4-12)
[2020-05-13 06:12] LABS: Eosinophils 1 % (0-10); Hypochromasia 1+; Lymphocytes 14 % (20-55); Microcytosis Slight; Platelet Estimate Increased; Segmented Neutrophils 76 % (50-85); Total Cells Counted 100
[2020-05-13 06:14] LABS: Calcium 8.3 MG/DL (8.5-10.1); Osmolality,Calculated 271.1 MOS/KG (273-304); Potassium 3.7 MMOL/L (3.5-5.1)
[2020-05-13] MEDS: metOLazone 5 MG TABLET PO SCH (08:32)
[2020-05-13] MEDS: FOLIC ACID 1 MG TABLET PO SCH (08:32)
[2020-05-13] MEDS: PANTOPRAZOLE 40 MG VIAL IV SCH (08:32)
[2020-05-13] MEDS: CALCIUM (CARBONATE) 600 MG TABLET PO SCH ×2 (08:32→21:15)
[2020-05-13] MEDS: POTASSIUM CITRATE 10 MEQ TABLET PO SCH ×2 (08:32→21:15)
[2020-05-13] MEDS: ASPIRIN EC 81 MG TABLET PO SCH (08:33)
[2020-05-13] MEDS: DIGOXIN 0.25 MG TABLET PO SCH (08:33)
[2020-05-13] MEDS: MULTIVITAMIN (CENTRUM) TABLET PO SCH (08:33)
[2020-05-13] MEDS: carvediloL 6.25 MG TABLET PO SCH ×2 (08:33→17:40)
[2020-05-13] MEDS: lisinopriL 10 MG TABLET PO SCH (08:33)
[2020-05-13] MEDS: CELECOXIB 200 MG CAPSULE PO SCH (08:33)
[2020-05-13] MEDS: OMEGA 3 ACID ETHYL ESTERS 1 GM CAPSULE PO SCH (08:33)
[2020-05-13] MEDS: MONTELUKAST 10 MG TABLET PO SCH (08:33)
[2020-05-13] MEDS: FUROSEMIDE 40 MG TABLET PO SCH (08:33)
[2020-05-13] MEDS: DILTIAZEM CD 180 MG CAPSULE PO SCH (08:33)
[2020-05-13] MEDS: SIMVASTATIN 40 MG TABLET PO SCH (08:33)
[2020-05-13] MEDS: DOCUSATE SODIUM 100 MG CAPSULE PO SCH ×4 (08:34→21:16)
[2020-05-13] MEDS: AMIODARONE 200 MG TABLET PO SCH ×2 (08:34→21:15)
[2020-05-13] MEDS: ZINC OXIDE 16% PASTE 57 GM TUBE TOP SCH ×2 (08:51→20:15)
[2020-05-13] MEDS: ANORO INH SCH (08:52)
[2020-05-13] MEDS ORDERED: BISACODYL 5 MG TABLET PO ONE (12:00)
[2020-05-13] MEDS ORDERED: POLYETHYLENE GLYCOL POWDER 255 GM BOTTLE PO ONE (18:00)
[2020-05-13] MEDS: AMITRIPTYLINE 75 MG TABLET PO SCH (21:15)
[2020-05-14 05:07] LABS: Basophils # 0.1 10*3/uL (0.0-0.2); Basophils % 0.6 % (0.0-0.8); Eosinophils # 0.3 10*3/uL (0.0-0.87); Eosinophils % 2.6 % (0.00-10.9); Hematocrit 27.3 VOL% (42.0-52.0); Hemoglobin 9.1 GM/DL (14.0-18.0); Immature Granulocytes Absolute 0.48 #; Lymphocytes # 1.7 10*3/uL (1.4-4.0); Lymphocytes % 17.1 % (21.2-54.2); Mean Corpuscular HGB Conc 33.3 GM/DL (32-36); Mean Corpuscular Volume 88.9 FL (87-102); Monocytes % 14.9 % (1.7-12.7); Neutrophils % 59.8 % (38.7-73.9); Platelet Count 437 T/CUMM (130-400); Red Blood Count 3.07 MC/CUMM (3.8-5.5); Red Cell Distribution Width 13.9 % (9.3-17.3); White Blood Count 9.7 T/CUMM (4-12)
[2020-05-14 05:18] LABS: INR 1.2; PT Patient Result 12.5 SECS (9.8-11.9)
[2020-05-14 05:33] LABS: Calcium 8.6 MG/DL (8.5-10.1); Osmolality,Calculated 259.7 MOS/KG (273-304); Potassium 3.5 MMOL/L (3.5-5.1)
[2020-05-14] MEDS ORDERED: LACTATED RINGERS 1,000 ML IV SCH (08:00)
[2020-05-14] MEDS: SODIUM CHLOR 0.9% KCL 20 MEQ 20 MEQ/1,000 ML BAG IV SCH ×2 (08:33→22:56)
[2020-05-14] MEDS: ZINC OXIDE 16% PASTE 57 GM TUBE TOP SCH ×2 (08:34→20:05)
[2020-05-14] MEDS: ANORO INH SCH (08:34)
[2020-05-14] MEDS: carvediloL 6.25 MG TABLET PO SCH ×2 (08:34→16:11)
[2020-05-14] MEDS: PANTOPRAZOLE 40 MG VIAL IV SCH (08:36)
[2020-05-14] MEDS: DOCUSATE SODIUM 100 MG CAPSULE PO SCH ×4 (10:53→20:05)
[2020-05-14] MEDS: AMIODARONE 200 MG TABLET PO SCH ×2 (10:53→20:05)
[2020-05-14] MEDS: POTASSIUM CITRATE 10 MEQ TABLET PO SCH ×2 (10:53→20:04)
[2020-05-14] MEDS: CALCIUM (CARBONATE) 600 MG TABLET PO SCH ×2 (10:53→20:05)
[2020-05-14] MEDS ORDERED: LIDOCAINE 2% 5 ML VIAL ONE (13:59)
[2020-05-14] MEDS ORDERED: propofoL 200 MG/20 ML VIAL IV ONE (13:59)
[2020-05-14] MEDS ORDERED: ALVIMOPAN 12 MG CAPSULE PO ONE (16:00)
[2020-05-14] MEDS: DILTIAZEM CD 180 MG CAPSULE PO SCH (16:10)
[2020-05-14] MEDS: metOLazone 5 MG TABLET PO SCH (16:10)
[2020-05-14] MEDS: FOLIC ACID 1 MG TABLET PO SCH (16:10)
[2020-05-14] MEDS: ASPIRIN EC 81 MG TABLET PO SCH (16:10)
[2020-05-14] MEDS: DIGOXIN 0.25 MG TABLET PO SCH (16:10)
[2020-05-14] MEDS: OMEGA 3 ACID ETHYL ESTERS 1 GM CAPSULE PO SCH (16:10)
[2020-05-14] MEDS: MULTIVITAMIN (CENTRUM) TABLET PO SCH (16:10)
[2020-05-14] MEDS: CELECOXIB 200 MG CAPSULE PO SCH (16:10)
[2020-05-14] MEDS: SIMVASTATIN 40 MG TABLET PO SCH (16:10)
[2020-05-14] MEDS: MONTELUKAST 10 MG TABLET PO SCH (16:11)
[2020-05-14] MEDS: FUROSEMIDE 40 MG TABLET PO SCH (16:11)
[2020-05-14] MEDS: lisinopriL 10 MG TABLET PO SCH (16:11)
[2020-05-14] MEDS: AMITRIPTYLINE 75 MG TABLET PO SCH (20:05)
[2020-05-15 05:38] LABS: Basophils # 0.1 10*3/uL (0.0-0.2); Basophils % 0.6 % (0.0-0.8); Eosinophils # 0.3 10*3/uL (0.0-0.87); Eosinophils % 2.8 % (0.00-10.9); Hematocrit 30.8 VOL% (42.0-52.0); Hemoglobin 10.4 GM/DL (14.0-18.0); Immature Granulocytes Absolute 0.44 #; Lymphocytes # 2.2 10*3/uL (1.4-4.0); Mean Corpuscular HGB Conc 33.8 GM/DL (32-36); Mean Corpuscular Volume 88.5 FL (87-102); Mean Platelet Volume 9.2 FL (9.6-12.0); Monocytes % 14.7 % (1.7-12.7); Neutrophils % 57.9 % (38.7-73.9); Platelet Count 481 T/CUMM (130-400); Red Blood Count 3.48 MC/CUMM (3.8-5.5); Red Cell Distribution Width 14.2 % (9.3-17.3)
[2020-05-15 06:02] LABS: Calcium 8.7 MG/DL (8.5-10.1); Osmolality,Calculated 257.8 MOS/KG (273-304); Potassium 4.1 MMOL/L (3.5-5.1)
[2020-05-15] MEDS: ASPIRIN EC 81 MG TABLET PO SCH (08:48)
[2020-05-15] MEDS: carvediloL 6.25 MG TABLET PO SCH ×2 (08:48→16:21)
[2020-05-15] MEDS: CALCIUM (CARBONATE) 600 MG TABLET PO SCH ×2 (08:49→20:42)
[2020-05-15] MEDS: AMIODARONE 200 MG TABLET PO SCH ×2 (08:49→20:41)
[2020-05-15] MEDS: FOLIC ACID 1 MG TABLET PO SCH (08:49)
[2020-05-15] MEDS: DIGOXIN 0.25 MG TABLET PO SCH (08:49)
[2020-05-15] MEDS: ZINC OXIDE 16% PASTE 57 GM TUBE TOP SCH ×2 (08:49→20:46)
[2020-05-15] MEDS: CELECOXIB 200 MG CAPSULE PO SCH (08:49)
[2020-05-15] MEDS: MULTIVITAMIN (CENTRUM) TABLET PO SCH (08:49)
[2020-05-15] MEDS: DILTIAZEM CD 180 MG CAPSULE PO SCH (08:49)
[2020-05-15] MEDS: DOCUSATE SODIUM 100 MG CAPSULE PO SCH ×2 (08:49→20:42)
[2020-05-15] MEDS: metOLazone 5 MG TABLET PO SCH (08:50)
[2020-05-15] MEDS: POTASSIUM CITRATE 10 MEQ TABLET PO SCH ×2 (08:50→20:41)
[2020-05-15] MEDS: FUROSEMIDE 40 MG TABLET PO SCH (08:50)
[2020-05-15] MEDS: MONTELUKAST 10 MG TABLET PO SCH (08:50)
[2020-05-15] MEDS: ANORO INH SCH (08:50)
[2020-05-15] MEDS: PANTOPRAZOLE 40 MG VIAL IV SCH (08:50)
[2020-05-15] MEDS: lisinopriL 10 MG TABLET PO SCH (08:50)
[2020-05-15] MEDS: OMEGA 3 ACID ETHYL ESTERS 1 GM CAPSULE PO SCH (08:50)
[2020-05-15] MEDS: SIMVASTATIN 40 MG TABLET PO SCH (08:51)
[2020-05-15] MEDS ORDERED: MIDAZOLAM 2 MG/2 ML VIAL ONE (09:42)
[2020-05-15] MEDS ORDERED: fentaNYL 100 MCG/2 ML VIAL ONE (09:42)
[2020-05-15] MEDS ORDERED: TISSUE ADHESIVE 1 EACH APPLICATOR TOP ONE ×2 (09:45→13:26)
[2020-05-15] MEDS ORDERED: INDOCYANINE GREEN 25 MG VIAL IV ONE (09:45)
[2020-05-15] MEDS ORDERED: DESFLURANE 1 UNIT/15 MINUTE INH ONE ×2 (09:55→13:05)
[2020-05-15] MEDS ORDERED: ROPIVACAINE 0.5% 30 ML VIAL ONE (09:56)
[2020-05-15] MEDS ORDERED: GABAPENTIN 300 MG CAPSULE PO ONE (10:00)
[2020-05-15] MEDS ORDERED: ERTAPENEM 1,000 MG in SODIUM CHLORIDE 0.9% 100 ML IV ONE (10:00)
[2020-05-15] MEDS ORDERED: ALVIMOPAN 12 MG CAPSULE PO ONE (10:00)
[2020-05-15] MEDS ORDERED: LACTATED RINGERS 1,000 ML IV SCH (10:30)
[2020-05-15] MEDS ORDERED: ALBUMIN 5% 12.5 GM/250 ML VIAL IV ONE (12:57)
[2020-05-15] MEDS ORDERED: ROCURONIUM 50 MG/5 ML VIAL IV ONE (13:05)
[2020-05-15] MEDS ORDERED: LIDOCAINE 2% 5 ML VIAL ONE (13:05)
[2020-05-15] MEDS ORDERED: PHENYLEPHRINE 10 MG/1 ML VIAL IV ONE (13:05)
[2020-05-15] MEDS ORDERED: NEOSTIGMINE 10 MG/10 ML VIAL ONE (13:05)
[2020-05-15] MEDS ORDERED: PHENYLEPHRINE 1 MG/10 ML SYRINGE IV ONE (13:05)
[2020-05-15] MEDS ORDERED: ONDANSETRON 4 MG/2 ML VIAL ONE (13:05)
[2020-05-15] MEDS ORDERED: LACTATED RINGERS 2,000 ML IV ONE (13:05)
[2020-05-15] MEDS ORDERED: propofoL 200 MG/20 ML VIAL IV ONE (13:05)
[2020-05-15] MEDS ORDERED: GLYCOPYRROLATE 0.4 MG/2 ML VIAL ONE (13:05)
[2020-05-15] MEDS ORDERED: HYDROmorphone 2 MG/1 ML VIAL IV PRN (13:49)
[2020-05-15] MEDS: SODIUM CHLOR 0.9% KCL 20 MEQ 20 MEQ/1,000 ML BAG IV SCH (14:08)
[2020-05-15 14:11] LABS: Basophils # 0.1 10*3/uL (0.0-0.2); Basophils % 0.4 % (0.0-0.8); Eosinophils % 0.2 % (0.00-10.9); Hemoglobin 9.5 GM/DL (14.0-18.0); Immature Granulocytes % 4.5 %; Immature Granulocytes Absolute 0.61 #; Lymphocytes # 0.8 10*3/uL (1.4-4.0); Mean Corpuscular HGB Conc 32.8 GM/DL (32-36); Mean Corpuscular Volume 90.1 FL (87-102); Mean Platelet Volume 8.5 FL (9.6-12.0); Monocytes % 3.2 % (1.7-12.7); Neutrophils % 85.7 % (38.7-73.9); Platelet Count 412 T/CUMM (130-400); Red Blood Count 3.22 MC/CUMM (3.8-5.5); Red Cell Distribution Width 14.1 % (9.3-17.3); White Blood Count 13.7 T/CUMM (4-12)
[2020-05-15] MEDS: LACTATED RINGERS 1,000 ML IV SCH (14:37)
[2020-05-15 14:43] LABS: Calcium 7.9 MG/DL (8.5-10.1); Osmolality,Calculated 265.5 MOS/KG (273-304)
[2020-05-15] MEDS ORDERED: SODIUM CHLORIDE 0.9% 1,000 ML IV ONE (15:08)
[2020-05-15 15:15] LABS: Lymphocytes 8 % (20-55); Segmented Neutrophils 90 % (50-85); Total Cells Counted 100
[2020-05-15 15:17] LABS: Bacteria,Urine Occasional /HPF (Few); Bilirubin,Urine Negative (Negative); Blood, Urine Negative (Negative); Glucose,Urine (UA) Negative (Negative); Hyaline Casts,Urine 15 /LPF (0-3); Ketones,Urine Negative (Negative); Mucus,Urine Occasional /LPF (Occasional); Nitrite,Urine Negative (Negative); Protein,Urine Negative; RBC,Urine 1 /HPF (0-4); Squamous Epithelial Cell,Urine Occasional /HPF (0-10); Urine Appearance Slightly Hazy (Clear); Urine Color Yellow (Yellow); Urine Specific Gravity 1.015 (1.001-1.035); Urine Urobilinogen < 2.0 EU/DL (0.2-1.0); WBC,Urine 2 /HPF (0-6)
[2020-05-15] MEDS: ALBUMIN 25% 25 GM in PREMIX 1 EACH IV SCH ×2 (15:28→23:47)
[2020-05-15] MEDS ORDERED: IBUPROFEN 600 MG TABLET PO ONE (16:00)
[2020-05-15] MEDS: ONDANSETRON 4 MG/2 ML VIAL IV PRN (20:25)
[2020-05-15] MEDS: AMITRIPTYLINE 75 MG TABLET PO SCH (20:41)
[2020-05-15] MEDS: ALVIMOPAN 12 MG CAPSULE PO SCH (20:42)
[2020-05-16] MEDS: LACTATED RINGERS 1,000 ML IV SCH (02:35)
[2020-05-16 05:21] LABS: Basophils % 0.2 % (0.0-0.8); Immature Granulocytes % 1.3 %; Immature Granulocytes Absolute 0.26 #; Lymphocytes # 0.9 10*3/uL (1.4-4.0); Lymphocytes % 4.6 % (21.2-54.2); Mean Corpuscular HGB Conc 34.6 GM/DL (32-36); Mean Corpuscular Volume 86.7 FL (87-102); Monocytes % 5.7 % (1.7-12.7); Neutrophils % 88.2 % (38.7-73.9); Platelet Count 395 T/CUMM (130-400); Red Cell Distribution Width 14.1 % (9.3-17.3); White Blood Count 19.7 T/CUMM (4-12)
[2020-05-16 05:54] LABS: Band Neutrophils 2 % (0-10); Hypochromasia 1+; Lymphocytes 3 % (20-55); Metamyelocytes 1 %; Microcytosis 1+; Platelet Estimate Normal; Segmented Neutrophils 86 % (50-85); Total Cells Counted 100
[2020-05-16 05:59] LABS: Calcium 8.3 MG/DL (8.5-10.1); Osmolality,Calculated 261.8 MOS/KG (273-304); Potassium 3.9 MMOL/L (3.5-5.1)
[2020-05-16] MEDS: CALCIUM (CARBONATE) 600 MG TABLET PO SCH ×2 (08:52→21:13)
[2020-05-16] MEDS: FOLIC ACID 1 MG TABLET PO SCH (08:52)
[2020-05-16] MEDS: POTASSIUM CITRATE 10 MEQ TABLET PO SCH ×2 (08:52→21:13)
[2020-05-16] MEDS: MULTIVITAMIN (CENTRUM) TABLET PO SCH (08:52)
[2020-05-16] MEDS: CELECOXIB 200 MG CAPSULE PO SCH (08:53)
[2020-05-16] MEDS: DIGOXIN 0.25 MG TABLET PO SCH (08:53)
[2020-05-16] MEDS: DILTIAZEM CD 180 MG CAPSULE PO SCH (08:53)
[2020-05-16] MEDS: DOCUSATE SODIUM 100 MG CAPSULE PO SCH ×2 (08:54→21:13)
[2020-05-16] MEDS: ASPIRIN EC 81 MG TABLET PO SCH (08:54)
[2020-05-16] MEDS: OMEGA 3 ACID ETHYL ESTERS 1 GM CAPSULE PO SCH (08:54)
[2020-05-16] MEDS: AMIODARONE 200 MG TABLET PO SCH ×2 (08:54→21:14)
[2020-05-16] MEDS: metOLazone 5 MG TABLET PO SCH (08:55)
[2020-05-16] MEDS: MONTELUKAST 10 MG TABLET PO SCH (08:55)
[2020-05-16] MEDS: SIMVASTATIN 40 MG TABLET PO SCH (08:56)
[2020-05-16] MEDS: carvediloL 6.25 MG TABLET PO SCH ×2 (08:56→17:09)
[2020-05-16] MEDS: FUROSEMIDE 40 MG TABLET PO SCH (08:56)
[2020-05-16] MEDS: PANTOPRAZOLE 40 MG VIAL IV SCH (08:56)
[2020-05-16] MEDS: ALBUMIN 25% 25 GM in PREMIX 1 EACH IV SCH (08:57)
[2020-05-16] MEDS: ENOXAPARIN 40 MG/0.4 ML SYRINGE SUBCUT SCH (08:57)
[2020-05-16] MEDS: ZINC OXIDE 16% PASTE 57 GM TUBE TOP SCH ×2 (08:58→21:17)
[2020-05-16] MEDS: lisinopriL 10 MG TABLET PO SCH (08:58)
[2020-05-16] MEDS: ALVIMOPAN 12 MG CAPSULE PO SCH ×2 (09:00→21:14)
[2020-05-16] MEDS: ANORO INH SCH (11:24)
[2020-05-16] MEDS: AMITRIPTYLINE 75 MG TABLET PO SCH (21:13)
[2020-05-17 05:51] LABS: Basophils % 0.2 % (0.0-0.8); Eosinophils # 0.1 10*3/uL (0.0-0.87); Eosinophils % 0.5 % (0.00-10.9); Hematocrit 25.6 VOL% (42.0-52.0); Hemoglobin 8.6 GM/DL (14.0-18.0); Immature Granulocytes % 1.4 %; Immature Granulocytes Absolute 0.23 #; Lymphocytes # 2.1 10*3/uL (1.4-4.0); Lymphocytes % 12.3 % (21.2-54.2); Mean Corpuscular HGB Conc 33.6 GM/DL (32-36); Mean Platelet Volume 9.4 FL (9.6-12.0); Monocytes % 9.6 % (1.7-12.7); Platelet Count 400 T/CUMM (130-400); Red Blood Count 2.91 MC/CUMM (3.8-5.5); Red Cell Distribution Width 14.6 % (9.3-17.3); White Blood Count 16.9 T/CUMM (4-12)
[2020-05-17 06:13] LABS: Eosinophils 1 % (0-10); Hypochromasia 1+; Lymphocytes 12 % (20-55); Platelet Estimate Increased; Segmented Neutrophils 78 % (50-85); Total Cells Counted 100
[2020-05-17 06:14] LABS: Calcium 9.1 MG/DL (8.5-10.1); Osmolality,Calculated 257.8 MOS/KG (273-304); Potassium 3.7 MMOL/L (3.5-5.1)
[2020-05-17] MEDS ORDERED: MAGNESIUM SULF RIDER 4 GM in PREMIX 1 EACH IV ONE (06:58)
[2020-05-17] MEDS: ALBUTEROL 2.5 MG/3 ML NEB RESP TX PRN (07:15)
[2020-05-17] MEDS ORDERED: FUROSEMIDE 40 MG/4 ML VIAL IV ONE ×2 (07:15→15:00)
[2020-05-17] MEDS: ASPIRIN EC 81 MG TABLET PO SCH (08:14)
[2020-05-17] MEDS: DILTIAZEM CD 180 MG CAPSULE PO SCH (08:15)
[2020-05-17] MEDS: FOLIC ACID 1 MG TABLET PO SCH (08:17)
[2020-05-17] MEDS: MULTIVITAMIN (CENTRUM) TABLET PO SCH (08:17)
[2020-05-17] MEDS: metOLazone 5 MG TABLET PO SCH (08:18)
[2020-05-17] MEDS: SIMVASTATIN 40 MG TABLET PO SCH (08:18)
[2020-05-17] MEDS: lisinopriL 10 MG TABLET PO SCH (08:19)
[2020-05-17] MEDS: DIGOXIN 0.125 MG TABLET PO SCH (08:19)
[2020-05-17 08:20] LABS: ABG Base Excess 10.9 MMOL/L (-2.5-2.5); ABG HCO3 36.1 MMOL/L (20-26); ABG PCO2 51.5 MM HG (35-48); ABG PH 7.463 (7.35-7.45); ABG PO2 65.7 MM HG (80-95); ABG TCO2 37.6 MMOL/L (23-27)
[2020-05-17] MEDS: POTASSIUM CITRATE 10 MEQ TABLET PO SCH ×2 (08:20→21:54)
[2020-05-17] MEDS: MONTELUKAST 10 MG TABLET PO SCH (08:20)
[2020-05-17] MEDS: CELECOXIB 200 MG CAPSULE PO SCH (08:21)
[2020-05-17] MEDS: CALCIUM (CARBONATE) 600 MG TABLET PO SCH ×2 (08:21→21:52)
[2020-05-17] MEDS: DOCUSATE SODIUM 100 MG CAPSULE PO SCH ×2 (08:22→21:52)
[2020-05-17] MEDS: OMEGA 3 ACID ETHYL ESTERS 1 GM CAPSULE PO SCH (08:22)
[2020-05-17] MEDS: AMIODARONE 200 MG TABLET PO SCH ×2 (08:22→21:52)
[2020-05-17] MEDS: carvediloL 6.25 MG TABLET PO SCH ×2 (08:23→16:28)
[2020-05-17] MEDS: PANTOPRAZOLE 40 MG VIAL IV SCH (08:26)
[2020-05-17] MEDS: ENOXAPARIN 40 MG/0.4 ML SYRINGE SUBCUT SCH (08:28)
[2020-05-17] MEDS: FUROSEMIDE 40 MG TABLET PO SCH (08:31)
[2020-05-17] MEDS: ALVIMOPAN 12 MG CAPSULE PO SCH ×2 (08:33→21:52)
[2020-05-17] MEDS: ANORO INH SCH (08:37)
[2020-05-17] MEDS ORDERED: AZITHROMYCIN 250 MG TABLET PO ONE (09:00)
[2020-05-17] MEDS: cefTRIAXone 1,000 MG in SYRINGE 1 EACH IV SCH (09:19)
[2020-05-17] MEDS: ALBUTEROL/IPRATROPIUM 3 ML NEB RESP TX SCH ×3 (10:54→19:43)
[2020-05-17] MEDS: ZINC OXIDE 16% PASTE 57 GM TUBE TOP SCH ×2 (16:31→21:53)
[2020-05-17] MEDS: AMITRIPTYLINE 75 MG TABLET PO SCH (21:52)
[2020-05-18] MEDS: ALBUTEROL/IPRATROPIUM 3 ML NEB RESP TX SCH ×7 (02:08→23:10)
[2020-05-18] MEDS ORDERED: MAGNESIUM SULF RIDER 2 GM in PREMIX 1 EACH IV PRN (06:00)
[2020-05-18 06:02] LABS: Basophils # 0.1 10*3/uL (0.0-0.2); Basophils % 0.4 % (0.0-0.8); Eosinophils # 0.3 10*3/uL (0.0-0.87); Eosinophils % 2.7 % (0.00-10.9); Hematocrit 25.9 VOL% (42.0-52.0); Hemoglobin 8.6 GM/DL (14.0-18.0); Immature Granulocytes % 1.3 %; Immature Granulocytes Absolute 0.16 #; Mean Corpuscular HGB Conc 33.2 GM/DL (32-36); Mean Corpuscular Volume 88.4 FL (87-102); Mean Platelet Volume 8.9 FL (9.6-12.0); Monocytes % 13.3 % (1.7-12.7); Neutrophils % 66.3 % (38.7-73.9); Platelet Count 375 T/CUMM (130-400); Red Blood Count 2.93 MC/CUMM (3.8-5.5); White Blood Count 12.5 T/CUMM (4-12)
[2020-05-18 06:12] LABS: Calcium 8.8 MG/DL (8.5-10.1); Osmolality,Calculated 259.9 MOS/KG (273-304); Potassium 3.3 MMOL/L (3.5-5.1)
[2020-05-18] MEDS: PANTOPRAZOLE 40 MG TABLET PO SCH (06:32)
[2020-05-18] MEDS ORDERED: POTASSIUM CHLORIDE 20 MEQ TABLET PO PRN (06:34)
[2020-05-18 06:35] LABS: Band Neutrophils 1 % (0-10); Eosinophils 2 % (0-10); Lymphocytes 13 % (20-55); Segmented Neutrophils 74 % (50-85); Total Cells Counted 100
[2020-05-18 06:36] LABS: Hypochromasia 1+; Microcytosis 1+
[2020-05-18 06:37] LABS: Polychromasia Slight
[2020-05-18 06:38] LABS: Atypical Lymphocytes Few
[2020-05-18] MEDS: ASPIRIN EC 81 MG TABLET PO SCH (08:44)
[2020-05-18] MEDS: FOLIC ACID 1 MG TABLET PO SCH (08:44)
[2020-05-18] MEDS: DOCUSATE SODIUM 100 MG CAPSULE PO SCH ×2 (08:45→20:54)
[2020-05-18] MEDS: ALVIMOPAN 12 MG CAPSULE PO SCH ×2 (08:46→20:55)
[2020-05-18] MEDS: CALCIUM (CARBONATE) 600 MG TABLET PO SCH ×2 (08:46→20:54)
[2020-05-18] MEDS: OMEGA 3 ACID ETHYL ESTERS 1 GM CAPSULE PO SCH (08:46)
[2020-05-18] MEDS: MULTIVITAMIN (CENTRUM) TABLET PO SCH (08:47)
[2020-05-18] MEDS: CELECOXIB 200 MG CAPSULE PO SCH (08:47)
[2020-05-18] MEDS: FUROSEMIDE 40 MG TABLET PO SCH (08:47)
[2020-05-18] MEDS: MONTELUKAST 10 MG TABLET PO SCH (08:47)
[2020-05-18] MEDS: lisinopriL 10 MG TABLET PO SCH (08:47)
[2020-05-18] MEDS: DIGOXIN 0.125 MG TABLET PO SCH (08:48)
[2020-05-18] MEDS: metOLazone 5 MG TABLET PO SCH (08:49)
[2020-05-18] MEDS: SIMVASTATIN 40 MG TABLET PO SCH (08:49)
[2020-05-18] MEDS: AMIODARONE 200 MG TABLET PO SCH ×2 (08:50→20:54)
[2020-05-18] MEDS: POTASSIUM CITRATE 10 MEQ TABLET PO SCH ×2 (08:50→20:54)
[2020-05-18] MEDS: DILTIAZEM CD 180 MG CAPSULE PO SCH (08:50)
[2020-05-18] MEDS: AZITHROMYCIN 250 MG TABLET PO SCH (08:50)
[2020-05-18] MEDS: ENOXAPARIN 40 MG/0.4 ML SYRINGE SUBCUT SCH (08:51)
[2020-05-18] MEDS: carvediloL 6.25 MG TABLET PO SCH ×2 (08:54→17:18)
[2020-05-18] MEDS: ZINC OXIDE 16% PASTE 57 GM TUBE TOP SCH ×2 (08:54→20:54)
[2020-05-18] MEDS: cefTRIAXone 1,000 MG in SYRINGE 1 EACH IV SCH (08:54)
[2020-05-18] MEDS: ANORO INH SCH (09:00)
[2020-05-18] MEDS: ALUMINUM/MAGNES/SIMETH MAX STR 30 ML UDCUP PO PRN (11:42)
[2020-05-18] MEDS ORDERED: POTASSIUM CHLORIDE 20 MEQ TABLET PO ONE (13:00)
[2020-05-18] MEDS ORDERED: FUROSEMIDE 40 MG/4 ML VIAL IV ONE (13:30)
[2020-05-18] MEDS: AMITRIPTYLINE 75 MG TABLET PO SCH (20:54)
[2020-05-18] MEDS: ONDANSETRON 4 MG/2 ML VIAL IV PRN (23:06)
[2020-05-19] MEDS: ALBUTEROL/IPRATROPIUM 3 ML NEB RESP TX SCH ×6 (03:02→23:55)
[2020-05-19] MEDS: PANTOPRAZOLE 40 MG TABLET PO SCH (05:33)
[2020-05-19 06:04] LABS: Basophils # 0.1 10*3/uL (0.0-0.2); Basophils % 0.4 % (0.0-0.8); Eosinophils # 0.2 10*3/uL (0.0-0.87); Eosinophils % 1.3 % (0.00-10.9); Hematocrit 29.6 VOL% (42.0-52.0); Hemoglobin 9.8 GM/DL (14.0-18.0); Immature Granulocytes % 1.4 %; Immature Granulocytes Absolute 0.21 #; Lymphocytes # 1.8 10*3/uL (1.4-4.0); Lymphocytes % 11.6 % (21.2-54.2); Mean Corpuscular HGB Conc 33.1 GM/DL (32-36); Mean Corpuscular Volume 88.9 FL (87-102); Mean Platelet Volume 9.3 FL (9.6-12.0); Monocytes % 13.4 % (1.7-12.7); Neutrophils % 71.9 % (38.7-73.9); Platelet Count 471 T/CUMM (130-400); Red Blood Count 3.33 MC/CUMM (3.8-5.5); Red Cell Distribution Width 14.2 % (9.3-17.3); White Blood Count 15.3 T/CUMM (4-12)
[2020-05-19 06:37] LABS: Calcium 9.2 MG/DL (8.5-10.1); Osmolality,Calculated 261.8 MOS/KG (273-304); Potassium 3.4 MMOL/L (3.5-5.1)
[2020-05-19 06:39] LABS: Band Neutrophils 5 % (0-10); Eosinophils 1 % (0-10); Lymphocytes 13 % (20-55); Platelet Estimate Normal; Segmented Neutrophils 69 % (50-85); Smudge Cells Few; Total Cells Counted 100
[2020-05-19 06:40] LABS: Anisocytosis 2+; Macrocytosis Slight
[2020-05-19] MEDS: DOCUSATE SODIUM 100 MG CAPSULE PO SCH ×2 (09:14→20:49)
[2020-05-19] MEDS: AMIODARONE 200 MG TABLET PO SCH ×2 (09:15→20:49)
[2020-05-19] MEDS: CELECOXIB 200 MG CAPSULE PO SCH (09:15)
[2020-05-19] MEDS: ASCORBIC ACID 500 MG TABLET PO SCH ×2 (09:15→20:50)
[2020-05-19] MEDS: POTASSIUM CITRATE 10 MEQ TABLET PO SCH ×2 (09:15→20:50)
[2020-05-19] MEDS: AZITHROMYCIN 250 MG TABLET PO SCH (09:16)
[2020-05-19] MEDS: SIMVASTATIN 40 MG TABLET PO SCH (09:16)
[2020-05-19] MEDS: OMEGA 3 ACID ETHYL ESTERS 1 GM CAPSULE PO SCH (09:16)
[2020-05-19] MEDS: FUROSEMIDE 40 MG TABLET PO SCH (09:16)
[2020-05-19] MEDS: DILTIAZEM CD 180 MG CAPSULE PO SCH (09:16)
[2020-05-19] MEDS: lisinopriL 10 MG TABLET PO SCH (09:17)
[2020-05-19] MEDS: MONTELUKAST 10 MG TABLET PO SCH (09:17)
[2020-05-19] MEDS: MULTIVITAMIN (CENTRUM) TABLET PO SCH (09:17)
[2020-05-19] MEDS: metOLazone 5 MG TABLET PO SCH (09:17)
[2020-05-19] MEDS: ENOXAPARIN 40 MG/0.4 ML SYRINGE SUBCUT SCH (09:18)
[2020-05-19] MEDS: CALCIUM (CARBONATE) 600 MG TABLET PO SCH ×2 (09:21→20:50)
[2020-05-19] MEDS: ZINC OXIDE 16% PASTE 57 GM TUBE TOP SCH ×2 (09:21→20:50)
[2020-05-19] MEDS: cefTRIAXone 1,000 MG in SYRINGE 1 EACH IV SCH (09:21)
[2020-05-19] MEDS: ASPIRIN EC 81 MG TABLET PO SCH (09:21)
[2020-05-19] MEDS: carvediloL 6.25 MG TABLET PO SCH ×2 (09:21→17:04)
[2020-05-19] MEDS: ALVIMOPAN 12 MG CAPSULE PO SCH ×2 (09:22→20:50)
[2020-05-19] MEDS: FOLIC ACID 1 MG TABLET PO SCH (09:22)
[2020-05-19] MEDS: ANORO INH SCH (10:08)
[2020-05-19] MEDS: DEXT 5% NACL 0.45% KCL 20 MEQ 20 MEQ/1,000 ML BAG IV SCH (11:53)
[2020-05-19] MEDS ORDERED: POTASSIUM CHLORIDE 20 MEQ TABLET PO ONE (14:09)
[2020-05-19] MEDS ORDERED: MAGNESIUM SULF RIDER 2 GM in PREMIX 1 EACH IV ONE (14:09)
[2020-05-19] MEDS: POLYETHYLENE GLYCOL POWDER 17 GM PACK PO PRN (20:49)
[2020-05-19] MEDS: AMITRIPTYLINE 75 MG TABLET PO SCH (20:50)
[2020-05-20] MEDS: DEXT 5% NACL 0.45% KCL 20 MEQ 20 MEQ/1,000 ML BAG IV SCH ×3 (02:20→23:03)
[2020-05-20] MEDS: ALBUTEROL/IPRATROPIUM 3 ML NEB RESP TX SCH ×6 (03:01→23:50)
[2020-05-20] MEDS: ALUMINUM/MAGNES/SIMETH MAX STR 30 ML UDCUP PO PRN (05:27)
[2020-05-20 05:48] LABS: Basophils # 0.1 10*3/uL (0.0-0.2); Basophils % 0.3 % (0.0-0.8); Eosinophils # 0.1 10*3/uL (0.0-0.87); Eosinophils % 0.7 % (0.00-10.9); Hematocrit 31.7 VOL% (42.0-52.0); Hemoglobin 10.5 GM/DL (14.0-18.0); Immature Granulocytes % 1.5 %; Immature Granulocytes Absolute 0.26 #; Lymphocytes # 1.9 10*3/uL (1.4-4.0); Lymphocytes % 11.3 % (21.2-54.2); Mean Corpuscular HGB Conc 33.1 GM/DL (32-36); Mean Corpuscular Volume 89.3 FL (87-102); Monocytes % 13.6 % (1.7-12.7); Neutrophils % 72.6 % (38.7-73.9); Platelet Count 544 T/CUMM (130-400); Red Blood Count 3.55 MC/CUMM (3.8-5.5); Red Cell Distribution Width 14.1 % (9.3-17.3)
[2020-05-20] MEDS: PANTOPRAZOLE 40 MG TABLET PO SCH (05:58)
[2020-05-20 06:04] LABS: Potassium 3.7 MMOL/L (3.5-5.1)
[2020-05-20 06:08] LABS: Osmolality,Calculated 258.2 MOS/KG (273-304)
[2020-05-20] MEDS: CALCIUM (CARBONATE) 600 MG TABLET PO SCH ×2 (08:01→20:48)
[2020-05-20] MEDS: carvediloL 6.25 MG TABLET PO SCH ×2 (08:01→16:05)
[2020-05-20] MEDS: ASPIRIN EC 81 MG TABLET PO SCH (08:01)
[2020-05-20] MEDS: FOLIC ACID 1 MG TABLET PO SCH (08:02)
[2020-05-20] MEDS: MULTIVITAMIN (CENTRUM) TABLET PO SCH (08:02)
[2020-05-20] MEDS: FUROSEMIDE 40 MG TABLET PO SCH (08:02)
[2020-05-20] MEDS: DIGOXIN 0.125 MG TABLET PO SCH (08:02)
[2020-05-20] MEDS: AMIODARONE 200 MG TABLET PO SCH ×2 (08:02→20:48)
[2020-05-20] MEDS: ALVIMOPAN 12 MG CAPSULE PO SCH ×2 (08:02→20:48)
[2020-05-20] MEDS: MONTELUKAST 10 MG TABLET PO SCH (08:02)
[2020-05-20] MEDS: CELECOXIB 200 MG CAPSULE PO SCH (08:02)
[2020-05-20] MEDS: OMEGA 3 ACID ETHYL ESTERS 1 GM CAPSULE PO SCH (08:02)
[2020-05-20] MEDS: DILTIAZEM CD 180 MG CAPSULE PO SCH (08:02)
[2020-05-20] MEDS: DOCUSATE SODIUM 100 MG CAPSULE PO SCH ×2 (08:02→20:48)
[2020-05-20] MEDS: lisinopriL 10 MG TABLET PO SCH (08:02)
[2020-05-20] MEDS: ANORO INH SCH (08:03)
[2020-05-20] MEDS: SIMVASTATIN 40 MG TABLET PO SCH (08:03)
[2020-05-20] MEDS: AZITHROMYCIN 250 MG TABLET PO SCH (08:03)
[2020-05-20] MEDS: POTASSIUM CITRATE 10 MEQ TABLET PO SCH ×2 (08:03→20:48)
[2020-05-20] MEDS: metOLazone 5 MG TABLET PO SCH (08:03)
[2020-05-20] MEDS: ASCORBIC ACID 500 MG TABLET PO SCH ×2 (08:03→20:48)
[2020-05-20] MEDS: ZINC OXIDE 16% PASTE 57 GM TUBE TOP SCH ×2 (09:42→20:48)
[2020-05-20] MEDS: ENOXAPARIN 40 MG/0.4 ML SYRINGE SUBCUT SCH (09:42)
[2020-05-20] MEDS: cefTRIAXone 1,000 MG in SYRINGE 1 EACH IV SCH (09:50)
[2020-05-20] MEDS: metroNIDAZOLE INJ 500 MG in PREMIX 1 EACH IV SCH ×2 (11:44→17:30)
[2020-05-20] MEDS: AMITRIPTYLINE 75 MG TABLET PO SCH (20:48)
[2020-05-21] MEDS: metroNIDAZOLE INJ 500 MG in PREMIX 1 EACH IV SCH ×3 (01:54→17:10)
[2020-05-21] MEDS: ALBUTEROL/IPRATROPIUM 3 ML NEB RESP TX SCH ×5 (02:50→20:38)
[2020-05-21 04:40] LABS: Basophils # 0.1 10*3/uL (0.0-0.2); Basophils % 0.4 % (0.0-0.8); Eosinophils # 0.3 10*3/uL (0.0-0.87); Eosinophils % 1.7 % (0.00-10.9); Hematocrit 28.9 VOL% (42.0-52.0); Hemoglobin 9.4 GM/DL (14.0-18.0); Immature Granulocytes % 1.2 %; Immature Granulocytes Absolute 0.19 #; Lymphocytes # 1.9 10*3/uL (1.4-4.0); Lymphocytes % 11.9 % (21.2-54.2); Mean Corpuscular HGB Conc 32.5 GM/DL (32-36); Mean Corpuscular Volume 89.8 FL (87-102); Monocytes % 13.8 % (1.7-12.7); Platelet Count 499 T/CUMM (130-400); Red Blood Count 3.22 MC/CUMM (3.8-5.5); Red Cell Distribution Width 14.2 % (9.3-17.3); White Blood Count 15.9 T/CUMM (4-12)
[2020-05-21 04:58] LABS: Calcium 8.6 MG/DL (8.5-10.1); Osmolality,Calculated 261.8 MOS/KG (273-304); Potassium 4.1 MMOL/L (3.5-5.1)
[2020-05-21] MEDS: PANTOPRAZOLE 40 MG TABLET PO SCH (05:32)
[2020-05-21] MEDS: carvediloL 6.25 MG TABLET PO SCH ×2 (08:58→17:10)
[2020-05-21] MEDS: MULTIVITAMIN (CENTRUM) TABLET PO SCH (08:58)
[2020-05-21] MEDS: FOLIC ACID 1 MG TABLET PO SCH (08:58)
[2020-05-21] MEDS: CELECOXIB 200 MG CAPSULE PO SCH (08:58)
[2020-05-21] MEDS: CALCIUM (CARBONATE) 600 MG TABLET PO SCH ×2 (08:58→22:48)
[2020-05-21] MEDS: ENOXAPARIN 40 MG/0.4 ML SYRINGE SUBCUT SCH (08:59)
[2020-05-21] MEDS: ALVIMOPAN 12 MG CAPSULE PO SCH ×2 (08:59→22:49)
[2020-05-21] MEDS: FUROSEMIDE 40 MG TABLET PO SCH (08:59)
[2020-05-21] MEDS: DOCUSATE SODIUM 100 MG CAPSULE PO SCH ×2 (09:00→22:49)
[2020-05-21] MEDS ORDERED: DIGOXIN 0.125 MG TABLET PO SCH (09:00)
[2020-05-21] MEDS: DILTIAZEM CD 180 MG CAPSULE PO SCH (09:00)
[2020-05-21] MEDS: ASPIRIN EC 81 MG TABLET PO SCH (09:00)
[2020-05-21] MEDS: POTASSIUM CITRATE 10 MEQ TABLET PO SCH ×2 (09:00→22:48)
[2020-05-21] MEDS: lisinopriL 10 MG TABLET PO SCH (09:00)
[2020-05-21] MEDS: OMEGA 3 ACID ETHYL ESTERS 1 GM CAPSULE PO SCH (09:00)
[2020-05-21] MEDS: DIGOXIN 0.125 MG TABLET PO SCH (09:01)
[2020-05-21] MEDS: SIMVASTATIN 40 MG TABLET PO SCH (09:01)
[2020-05-21] MEDS: ASCORBIC ACID 500 MG TABLET PO SCH ×2 (09:01→22:49)
[2020-05-21] MEDS: AMIODARONE 200 MG TABLET PO SCH ×2 (09:01→22:48)
[2020-05-21] MEDS: MONTELUKAST 10 MG TABLET PO SCH (09:01)
[2020-05-21] MEDS: ZINC OXIDE 16% PASTE 57 GM TUBE TOP SCH ×2 (09:02→22:50)
[2020-05-21] MEDS: metOLazone 5 MG TABLET PO SCH (09:02)
[2020-05-21] MEDS: cefTRIAXone 1,000 MG in SYRINGE 1 EACH IV SCH (09:02)
[2020-05-21] MEDS: ANORO INH SCH (10:09)
[2020-05-21] MEDS: DEXT 5% NACL 0.45% KCL 20 MEQ 20 MEQ/1,000 ML BAG IV SCH (10:11)
[2020-05-21] MEDS: AMITRIPTYLINE 75 MG TABLET PO SCH (22:48)
[2020-05-22] MEDS: ALBUTEROL/IPRATROPIUM 3 ML NEB RESP TX SCH ×6 (00:47→20:17)
[2020-05-22] MEDS: metroNIDAZOLE INJ 500 MG in PREMIX 1 EACH IV SCH ×3 (02:11→21:18)
[2020-05-22] MEDS: PANTOPRAZOLE 40 MG TABLET PO SCH ×2 (05:42→08:15)
[2020-05-22 05:43] LABS: Basophils # 0.1 10*3/uL (0.0-0.2); Basophils % 0.9 % (0.0-0.8); Eosinophils # 0.6 10*3/uL (0.0-0.87); Hemoglobin 9.4 GM/DL (14.0-18.0); Immature Granulocytes % 1.6 %; Immature Granulocytes Absolute 0.21 #; Lymphocytes # 2.1 10*3/uL (1.4-4.0); Lymphocytes % 16.2 % (21.2-54.2); Mean Corpuscular HGB Conc 32.4 GM/DL (32-36); Mean Corpuscular Volume 89.8 FL (87-102); Mean Platelet Volume 8.8 FL (9.6-12.0); Monocytes % 13.5 % (1.7-12.7); Neutrophils % 62.8 % (38.7-73.9); Platelet Count 459 T/CUMM (130-400); Red Blood Count 3.23 MC/CUMM (3.8-5.5); Red Cell Distribution Width 14.3 % (9.3-17.3); White Blood Count 12.7 T/CUMM (4-12)
[2020-05-22 05:58] LABS: Calcium 8.5 MG/DL (8.5-10.1); Osmolality,Calculated 256.1 MOS/KG (273-304); Potassium 4.1 MMOL/L (3.5-5.1)
[2020-05-22] MEDS: DEXT 5% NACL 0.45% KCL 20 MEQ 20 MEQ/1,000 ML BAG IV SCH ×4 (08:06→13:27)
[2020-05-22] MEDS: ENOXAPARIN 40 MG/0.4 ML SYRINGE SUBCUT SCH (08:13)
[2020-05-22] MEDS: metOLazone 5 MG TABLET PO SCH (08:14)
[2020-05-22] MEDS: CALCIUM (CARBONATE) 600 MG TABLET PO SCH ×2 (08:14→21:20)
[2020-05-22] MEDS: CELECOXIB 200 MG CAPSULE PO SCH (08:15)
[2020-05-22] MEDS: ASCORBIC ACID 500 MG TABLET PO SCH ×2 (08:15→21:20)
[2020-05-22] MEDS: FOLIC ACID 1 MG TABLET PO SCH (08:15)
[2020-05-22] MEDS: DIGOXIN 0.125 MG TABLET PO SCH (08:15)
[2020-05-22] MEDS: carvediloL 6.25 MG TABLET PO SCH ×2 (08:15→16:51)
[2020-05-22] MEDS: POTASSIUM CITRATE 10 MEQ TABLET PO SCH ×2 (08:15→21:19)
[2020-05-22] MEDS: SIMVASTATIN 40 MG TABLET PO SCH (08:15)
[2020-05-22] MEDS: AMIODARONE 200 MG TABLET PO SCH ×2 (08:15→21:20)
[2020-05-22] MEDS: MULTIVITAMIN (CENTRUM) TABLET PO SCH (08:15)
[2020-05-22] MEDS: ASPIRIN EC 81 MG TABLET PO SCH (08:15)
[2020-05-22] MEDS: lisinopriL 10 MG TABLET PO SCH (08:16)
[2020-05-22] MEDS: OMEGA 3 ACID ETHYL ESTERS 1 GM CAPSULE PO SCH (08:16)
[2020-05-22] MEDS: FUROSEMIDE 40 MG TABLET PO SCH (08:16)
[2020-05-22] MEDS: DILTIAZEM CD 180 MG CAPSULE PO SCH (08:16)
[2020-05-22] MEDS: DOCUSATE SODIUM 100 MG CAPSULE PO SCH ×2 (08:16→21:19)
[2020-05-22] MEDS: MONTELUKAST 10 MG TABLET PO SCH (08:16)
[2020-05-22] MEDS: ALVIMOPAN 12 MG CAPSULE PO SCH (08:16)
[2020-05-22] MEDS: ANORO INH SCH (09:05)
[2020-05-22] MEDS: ZINC OXIDE 16% PASTE 57 GM TUBE TOP SCH ×2 (09:06→21:20)
[2020-05-22] MEDS: cefTRIAXone 1,000 MG in SYRINGE 1 EACH IV SCH (09:06)
[2020-05-22] MEDS ORDERED: MAGNESIUM SULF RIDER 2 GM in PREMIX 1 EACH IV ONE (15:00)
[2020-05-22] MEDS: AMITRIPTYLINE 75 MG TABLET PO SCH (21:19)
[2020-05-23] MEDS: ALBUTEROL/IPRATROPIUM 3 ML NEB RESP TX SCH ×7 (01:51→23:42)
[2020-05-23 05:36] LABS: Basophils # 0.1 10*3/uL (0.0-0.2); Eosinophils # 0.7 10*3/uL (0.0-0.87); Eosinophils % 5.3 % (0.00-10.9); Hematocrit 29.6 VOL% (42.0-52.0); Hemoglobin 9.6 GM/DL (14.0-18.0); Immature Granulocytes % 2.4 %; Immature Granulocytes Absolute 0.31 #; Lymphocytes % 15.5 % (21.2-54.2); Mean Corpuscular HGB Conc 32.4 GM/DL (32-36); Mean Corpuscular Volume 88.4 FL (87-102); Mean Platelet Volume 9.3 FL (9.6-12.0); Monocytes % 14.5 % (1.7-12.7); Neutrophils % 61.3 % (38.7-73.9); Platelet Count 526 T/CUMM (130-400); Red Blood Count 3.35 MC/CUMM (3.8-5.5); Red Cell Distribution Width 14.2 % (9.3-17.3)
[2020-05-23] MEDS: metroNIDAZOLE INJ 500 MG in PREMIX 1 EACH IV SCH ×3 (06:08→20:49)
[2020-05-23 06:09] LABS: Calcium 8.3 MG/DL (8.5-10.1); Osmolality,Calculated 259.1 MOS/KG (273-304)
[2020-05-23] MEDS: PANTOPRAZOLE 40 MG TABLET PO SCH (06:09)
[2020-05-23] MEDS: DEXT 5% NACL 0.45% KCL 20 MEQ 20 MEQ/1,000 ML BAG IV SCH (06:10)
[2020-05-23] MEDS: SIMVASTATIN 40 MG TABLET PO SCH (08:55)
[2020-05-23] MEDS: ANORO INH SCH (09:55)
[2020-05-23] MEDS: CELECOXIB 200 MG CAPSULE PO SCH (09:55)
[2020-05-23] MEDS: metOLazone 5 MG TABLET PO SCH (09:55)
[2020-05-23] MEDS: MULTIVITAMIN (CENTRUM) TABLET PO SCH (09:55)
[2020-05-23] MEDS: MONTELUKAST 10 MG TABLET PO SCH (09:55)
[2020-05-23] MEDS: AMIODARONE 200 MG TABLET PO SCH ×2 (09:55→20:51)
[2020-05-23] MEDS: FOLIC ACID 1 MG TABLET PO SCH (09:55)
[2020-05-23] MEDS: POTASSIUM CHLORIDE INJ 10 MEQ in SODIUM CHLORIDE 0.9% 1,000 ML IV SCH ×2 (09:55→20:48)
[2020-05-23] MEDS: ZINC OXIDE 16% PASTE 57 GM TUBE TOP SCH ×2 (09:55→20:50)
[2020-05-23] MEDS: ASPIRIN EC 81 MG TABLET PO SCH (09:55)
[2020-05-23] MEDS: DOCUSATE SODIUM 100 MG CAPSULE PO SCH ×2 (09:55→20:51)
[2020-05-23] MEDS: CALCIUM (CARBONATE) 600 MG TABLET PO SCH ×2 (09:55→20:51)
[2020-05-23] MEDS: carvediloL 6.25 MG TABLET PO SCH ×2 (09:55→17:11)
[2020-05-23] MEDS: DILTIAZEM CD 180 MG CAPSULE PO SCH (09:55)
[2020-05-23] MEDS: OMEGA 3 ACID ETHYL ESTERS 1 GM CAPSULE PO SCH (09:55)
[2020-05-23] MEDS: POTASSIUM CITRATE 10 MEQ TABLET PO SCH ×2 (09:55→20:50)
[2020-05-23] MEDS: ASCORBIC ACID 500 MG TABLET PO SCH ×2 (09:55→20:51)
[2020-05-23] MEDS: DIGOXIN 0.125 MG TABLET PO SCH (09:55)
[2020-05-23] MEDS: ENOXAPARIN 40 MG/0.4 ML SYRINGE SUBCUT SCH (09:55)
[2020-05-23] MEDS: FUROSEMIDE 40 MG TABLET PO SCH (09:55)
[2020-05-23] MEDS: cefTRIAXone 1,000 MG in SYRINGE 1 EACH IV SCH (09:55)
[2020-05-23] MEDS: lisinopriL 10 MG TABLET PO SCH (10:03)
[2020-05-23] MEDS: AMITRIPTYLINE 75 MG TABLET PO SCH (20:51)
[2020-05-24] MEDS: ALBUTEROL/IPRATROPIUM 3 ML NEB RESP TX SCH ×3 (03:38→10:50)
[2020-05-24 05:32] LABS: Basophils # 0.1 10*3/uL (0.0-0.2); Basophils % 0.6 % (0.0-0.8); Eosinophils # 0.4 10*3/uL (0.0-0.87); Eosinophils % 3.3 % (0.00-10.9); Hematocrit 27.1 VOL% (42.0-52.0); Immature Granulocytes % 2.5 %; Immature Granulocytes Absolute 0.31 #; Lymphocytes # 2.1 10*3/uL (1.4-4.0); Lymphocytes % 16.9 % (21.2-54.2); Mean Corpuscular HGB Conc 33.2 GM/DL (32-36); Mean Corpuscular Volume 87.7 FL (87-102); Mean Platelet Volume 9.2 FL (9.6-12.0); Monocytes % 11.3 % (1.7-12.7); Neutrophils % 65.4 % (38.7-73.9); Platelet Count 482 T/CUMM (130-400); Red Blood Count 3.09 MC/CUMM (3.8-5.5); Red Cell Distribution Width 14.6 % (9.3-17.3); White Blood Count 12.5 T/CUMM (4-12)
[2020-05-24] MEDS: PANTOPRAZOLE 40 MG TABLET PO SCH (05:50)
[2020-05-24] MEDS: metroNIDAZOLE INJ 500 MG in PREMIX 1 EACH IV SCH ×2 (05:50→14:04)
[2020-05-24 06:36] LABS: Calcium 8.5 MG/DL (8.5-10.1); Osmolality,Calculated 258.9 MOS/KG (273-304); Potassium 4.1 MMOL/L (3.5-5.1)
[2020-05-24] MEDS: ASCORBIC ACID 500 MG TABLET PO SCH (10:05)
[2020-05-24] MEDS: OMEGA 3 ACID ETHYL ESTERS 1 GM CAPSULE PO SCH (10:05)
[2020-05-24] MEDS: CALCIUM (CARBONATE) 600 MG TABLET PO SCH (10:05)
[2020-05-24] MEDS: POTASSIUM CITRATE 10 MEQ TABLET PO SCH (10:05)
[2020-05-24] MEDS: DILTIAZEM CD 180 MG CAPSULE PO SCH (10:06)
[2020-05-24] MEDS: carvediloL 6.25 MG TABLET PO SCH (10:06)
[2020-05-24] MEDS: metOLazone 5 MG TABLET PO SCH (10:06)
[2020-05-24] MEDS: ASPIRIN EC 81 MG TABLET PO SCH (10:06)
[2020-05-24] MEDS: SIMVASTATIN 40 MG TABLET PO SCH (10:06)
[2020-05-24] MEDS: FUROSEMIDE 40 MG TABLET PO SCH (10:06)
[2020-05-24] MEDS: DOCUSATE SODIUM 100 MG CAPSULE PO SCH (10:07)
[2020-05-24] MEDS: FOLIC ACID 1 MG TABLET PO SCH (10:07)
[2020-05-24] MEDS: CELECOXIB 200 MG CAPSULE PO SCH (10:07)
[2020-05-24] MEDS: AMIODARONE 200 MG TABLET PO SCH (10:07)
[2020-05-24] MEDS: ENOXAPARIN 40 MG/0.4 ML SYRINGE SUBCUT SCH (10:07)
[2020-05-24] MEDS: MULTIVITAMIN (CENTRUM) TABLET PO SCH (10:07)
[2020-05-24] MEDS: MONTELUKAST 10 MG TABLET PO SCH (10:07)
[2020-05-24] MEDS: ZINC OXIDE 16% PASTE 57 GM TUBE TOP SCH (10:07)
[2020-05-24] MEDS: DIGOXIN 0.125 MG TABLET PO SCH (10:07)
[2020-05-24] MEDS: lisinopriL 10 MG TABLET PO SCH (10:08)
[2020-05-24] MEDS: ANORO INH SCH (10:08)
[2020-05-24] MEDS ORDERED: MAGNESIUM HYDROXIDE SUSP 30 ML UDCUP PO ONE (10:54)
[2020-05-24] MEDS: POLYETHYLENE GLYCOL POWDER 17 GM PACK PO PRN (11:03)
[2020-05-24 12:00] VITALS: BP 117/54
== END 2020-05-24 14:17 | disposition swing bed (61) | DRG 329 ==
LOC: EDUNIT# → N.ED 17:10 → N.EDINP 17:10 → OBSVTOIN 19:47 → N.EDINP 21:15 → N.5E 21:29 → N.ICU 05-15 13:06 → N.5E 05-16 13:03
PROVIDERS: ADMIT Family Medicine; ATTEND Family Medicine

== ENCOUNTER 2020-06-10 07:40 | Observation (INO) ==
[2020-06-10 08:09] LABS: Basophils # 0.1 10*3/uL (0.0-0.2); Basophils % 0.5 % (0.0-0.8); Eosinophils % 0.3 % (0.00-10.9); Hematocrit 36.6 VOL% (42.0-52.0); Hemoglobin 11.7 GM/DL (14.0-18.0); Immature Granulocytes Absolute 0.11 #; Lymphocytes # 1.2 10*3/uL (1.4-4.0); Lymphocytes % 10.6 % (21.2-54.2); Mean Corpuscular Volume 88.6 FL (87-102); Mean Platelet Volume 9.9 FL (9.6-12.0); Monocytes % 7.6 % (1.7-12.7); Platelet Count 391 T/CUMM (130-400); Red Blood Count 4.13 MC/CUMM (3.8-5.5); Red Cell Distribution Width 14.1 % (9.3-17.3); White Blood Count 10.8 T/CUMM (4-12)
[2020-06-10 08:21] LABS: PT Patient Result 11.2 SECS (10.5-12.0); Partial Thromboplastin Time 27.1 SECS (23.9-33.8)
[2020-06-10 08:31] LABS: Alanine Aminotransferase 186 U/L (16-61); Albumin 3.2 G/DL (3.4-5.0); Alkaline Phosphatase 128 U/L (45-117); Aspartate Amino Transferase 98 U/L (0-37); Bilirubin,Total < 0.39 MG/DL (0.2-1.0); Blood Urea Nitrogen 27 MG/DL (7-18); Calcium 8.5 MG/DL (8.5-10.1); Carbon Dioxide 34 MMOL/L (21-32); Estimated Glom Filtration Rate 87 ML/MIN; Glucose 72 MG/DL (74-106); Osmolality,Calculated 271.2 MOS/KG (273-304); Potassium 3.8 MMOL/L (3.5-5.1); Sodium 134 MMOL/L (136-145)
[2020-06-10] MEDS ORDERED: ACETAMINOPHEN 325 MG TABLET PO PRN (09:11)
[2020-06-10] MEDS ORDERED: ONDANSETRON 4 MG/2 ML VIAL IV PRN (09:11)
[2020-06-10] MEDS ORDERED: SODIUM CHLORIDE 0.45% 1,000 ML IV SCH (09:30)
[2020-06-10] MEDS ORDERED: DEXTROSE 50% 25 GM/50 ML VIAL IV ONE ×2 (13:38→15:17)
[2020-06-10] MEDS ORDERED: DEXTROSE 5% NACL 0.45% 1,000 ML IV SCH (14:00)
[2020-06-10] MEDS: DEXTROSE 50% 25 GM/50 ML VIAL IV PRN ×3 (16:18→22:16)
[2020-06-10] MEDS: DOCUSATE SODIUM 100 MG CAPSULE PO SCH (20:31)
[2020-06-10] MEDS: MONTELUKAST 10 MG TABLET PO SCH (20:31)
[2020-06-10] MEDS: carvediloL 3.125 MG TABLET PO SCH (20:32)
[2020-06-10] MEDS: APIXABAN 5 MG TABLET PO SCH (20:32)
[2020-06-10] MEDS: POTASSIUM CITRATE 10 MEQ TABLET PO SCH (20:32)
[2020-06-10] MEDS: AMIODARONE 200 MG TABLET PO SCH (20:32)
[2020-06-10] MEDS: DEXTROSE 10% 1,000 ML IV SCH (22:47)
[2020-06-11] MEDS: DEXTROSE 50% 25 GM/50 ML VIAL IV PRN ×3 (00:04→13:41)
[2020-06-11 06:29] LABS: Calcium 8.5 MG/DL (8.5-10.1); Osmolality,Calculated 259.8 MOS/KG (273-304); Potassium 3.4 MMOL/L (3.5-5.1)
[2020-06-11] MEDS: APIXABAN 5 MG TABLET PO SCH ×2 (08:36→20:30)
[2020-06-11] MEDS: AMIODARONE 200 MG TABLET PO SCH ×2 (08:36→20:30)
[2020-06-11] MEDS: DIGOXIN 0.125 MG TABLET PO SCH (08:36)
[2020-06-11] MEDS: predniSONE 5 MG TABLET PO SCH (08:37)
[2020-06-11] MEDS: SIMVASTATIN 40 MG TABLET PO SCH (08:37)
[2020-06-11] MEDS: POTASSIUM CHLORIDE 20 MEQ TABLET PO PRN ×3 (08:37→13:30)
[2020-06-11] MEDS: FERROUS SULFATE 325 MG TABLET PO SCH (08:37)
[2020-06-11] MEDS: ASPIRIN EC 81 MG TABLET PO SCH (08:37)
[2020-06-11] MEDS: PANTOPRAZOLE 40 MG TABLET PO SCH (08:37)
[2020-06-11] MEDS: DILTIAZEM CD 180 MG CAPSULE PO SCH (08:37)
[2020-06-11] MEDS: POTASSIUM CITRATE 10 MEQ TABLET PO SCH ×2 (08:37→20:30)
[2020-06-11] MEDS: carvediloL 3.125 MG TABLET PO SCH ×2 (08:37→20:30)
[2020-06-11] MEDS: DOCUSATE SODIUM 100 MG CAPSULE PO SCH ×2 (08:37→20:30)
[2020-06-11] MEDS: CELECOXIB 200 MG CAPSULE PO SCH (08:37)
[2020-06-11] MEDS: metOLazone 5 MG TABLET PO SCH (08:37)
[2020-06-11] MEDS ORDERED: RABEPRAZOLE 20 MG PO SCH (09:00)
[2020-06-11] MEDS ORDERED: FUROSEMIDE 40 MG TABLET PO SCH (12:50)
[2020-06-11] MEDS: DEXTROSE 10% 1,000 ML IV SCH ×2 (13:44→23:57)
[2020-06-11] MEDS: ALBUTEROL 2.5 MG/3 ML NEB RESP TX SCH ×2 (14:03→19:43)
[2020-06-11] MEDS: SKIN HEALING OINT (AQUAPHOR) 50 GM TUBE TOP SCH (20:30)
[2020-06-11] MEDS: MONTELUKAST 10 MG TABLET PO SCH (20:30)
[2020-06-12] MEDS: ALBUTEROL 2.5 MG/3 ML NEB RESP TX SCH ×4 (00:40→19:31)
[2020-06-12 05:38] LABS: Basophils # 0.1 10*3/uL (0.0-0.2); Basophils % 0.9 % (0.0-0.8); Eosinophils # 0.4 10*3/uL (0.0-0.87); Eosinophils % 3.5 % (0.00-10.9); Hematocrit 32.9 VOL% (42.0-52.0); Hemoglobin 10.8 GM/DL (14.0-18.0); Immature Granulocytes % 0.9 %; Lymphocytes # 3.5 10*3/uL (1.4-4.0); Lymphocytes % 31.3 % (21.2-54.2); Mean Corpuscular HGB Conc 32.8 GM/DL (32-36); Mean Corpuscular Volume 88.7 FL (87-102); Mean Platelet Volume 10.4 FL (9.6-12.0); Monocytes % 14.7 % (1.7-12.7); Neutrophils % 48.7 % (38.7-73.9); Platelet Count 374 T/CUMM (130-400); Red Blood Count 3.71 MC/CUMM (3.8-5.5); Red Cell Distribution Width 14.6 % (9.3-17.3); White Blood Count 11.2 T/CUMM (4-12)
[2020-06-12 05:55] LABS: Albumin 2.8 G/DL (3.4-5.0); Bilirubin,Total 0.5 MG/DL (0.2-1.0); Calcium 9.1 MG/DL (8.5-10.1); Osmolality,Calculated 264.7 MOS/KG (273-304); Potassium 4.3 MMOL/L (3.5-5.1); Total Protein 6.7 G/DL (6.4-8.2)
[2020-06-12] MEDS: DIGOXIN 0.125 MG TABLET PO SCH (08:29)
[2020-06-12] MEDS: CELECOXIB 200 MG CAPSULE PO SCH (08:30)
[2020-06-12] MEDS: DILTIAZEM CD 180 MG CAPSULE PO SCH (08:30)
[2020-06-12] MEDS: APIXABAN 5 MG TABLET PO SCH ×2 (08:30→20:15)
[2020-06-12] MEDS: predniSONE 5 MG TABLET PO SCH (08:30)
[2020-06-12] MEDS: DOCUSATE SODIUM 100 MG CAPSULE PO SCH ×2 (08:30→20:15)
[2020-06-12] MEDS: POTASSIUM CITRATE 10 MEQ TABLET PO SCH ×2 (08:30→20:15)
[2020-06-12] MEDS: carvediloL 3.125 MG TABLET PO SCH ×2 (08:30→20:15)
[2020-06-12] MEDS: metOLazone 5 MG TABLET PO SCH (08:31)
[2020-06-12] MEDS: PANTOPRAZOLE 40 MG TABLET PO SCH (08:31)
[2020-06-12] MEDS: FERROUS SULFATE 325 MG TABLET PO SCH (08:31)
[2020-06-12] MEDS: ASPIRIN EC 81 MG TABLET PO SCH (08:31)
[2020-06-12] MEDS: SIMVASTATIN 40 MG TABLET PO SCH (08:31)
[2020-06-12] MEDS: AMIODARONE 200 MG TABLET PO SCH ×2 (08:31→20:15)
[2020-06-12] MEDS: SKIN HEALING OINT (AQUAPHOR) 50 GM TUBE TOP SCH (10:00)
[2020-06-12] MEDS: SULFAMETHOX/TRIMETHOPRIM 800-160 MG TABLET PO SCH ×2 (10:00→20:15)
[2020-06-12] MEDS: MONTELUKAST 10 MG TABLET PO SCH (20:15)
[2020-06-13] MEDS: ALBUTEROL 2.5 MG/3 ML NEB RESP TX SCH ×2 (00:08→08:28)
[2020-06-13 06:56] LABS: Basophils # 0.1 10*3/uL (0.0-0.2); Basophils % 0.8 % (0.0-0.8); Eosinophils # 0.5 10*3/uL (0.0-0.87); Eosinophils % 4.3 % (0.00-10.9); Hematocrit 34.9 VOL% (42.0-52.0); Hemoglobin 11.2 GM/DL (14.0-18.0); Immature Granulocytes % 0.9 %; Lymphocytes # 2.9 10*3/uL (1.4-4.0); Lymphocytes % 26.1 % (21.2-54.2); Mean Corpuscular HGB Conc 32.1 GM/DL (32-36); Mean Corpuscular Volume 89.5 FL (87-102); Mean Platelet Volume 10.1 FL (9.6-12.0); Monocytes % 14.2 % (1.7-12.7); Neutrophils % 53.7 % (38.7-73.9); Platelet Count 347 T/CUMM (130-400); Red Cell Distribution Width 14.6 % (9.3-17.3)
[2020-06-13 07:12] LABS: Albumin 2.7 G/DL (3.4-5.0); Bilirubin,Total 1.1 MG/DL (0.2-1.0); Calcium 9.2 MG/DL (8.5-10.1); Osmolality,Calculated 262.8 MOS/KG (273-304); Potassium 4.3 MMOL/L (3.5-5.1); Total Protein 6.9 G/DL (6.4-8.2)
[2020-06-13 07:57] VITALS: BP 105/70
[2020-06-13] MEDS: FERROUS SULFATE 325 MG TABLET PO SCH (08:44)
[2020-06-13] MEDS: POTASSIUM CITRATE 10 MEQ TABLET PO SCH (08:44)
[2020-06-13] MEDS: DILTIAZEM CD 180 MG CAPSULE PO SCH (08:44)
[2020-06-13] MEDS: APIXABAN 5 MG TABLET PO SCH (08:44)
[2020-06-13] MEDS: CELECOXIB 200 MG CAPSULE PO SCH (08:44)
[2020-06-13] MEDS: metOLazone 5 MG TABLET PO SCH (08:44)
[2020-06-13] MEDS: SIMVASTATIN 40 MG TABLET PO SCH (08:45)
[2020-06-13] MEDS: DIGOXIN 0.125 MG TABLET PO SCH (08:45)
[2020-06-13] MEDS: ASPIRIN EC 81 MG TABLET PO SCH (08:45)
[2020-06-13] MEDS: AMIODARONE 200 MG TABLET PO SCH (08:45)
[2020-06-13] MEDS: DOCUSATE SODIUM 100 MG CAPSULE PO SCH (08:45)
[2020-06-13] MEDS: carvediloL 3.125 MG TABLET PO SCH (08:45)
[2020-06-13] MEDS: SULFAMETHOX/TRIMETHOPRIM 800-160 MG TABLET PO SCH (08:45)
[2020-06-13] MEDS: predniSONE 5 MG TABLET PO SCH (08:45)
[2020-06-13] MEDS: PANTOPRAZOLE 40 MG TABLET PO SCH (08:46)
[2020-06-13] MEDS ORDERED: DOXYCYCLINE HYCLATE 100 MG CAPSULE PO SCH (09:00)
== END 2020-06-13 10:36 | disposition home or self-care (01) ==
LOC: N.ED 07:40 → N.EDINP 07:40 → N.4E 09:37
PROVIDERS: ADMIT Family Medicine; ATTEND Family Medicine

== ENCOUNTER 2021-04-11 11:08 | Inpatient (IN) ==
[2021-04-11] MEDS ORDERED: ALBUTEROL/IPRATROPIUM 3 ML NEB RESP TX STA (11:48)
[2021-04-11] MEDS ORDERED: FUROSEMIDE 40 MG/4 ML VIAL IV STA (11:48)
[2021-04-11 12:14] LABS: Basophils # 0.1 10*3/uL (0.0-0.2); Basophils % 0.5 % (0.0-0.8); Eosinophils # 0.2 10*3/uL (0.0-0.87); Eosinophils % 1.4 % (0.00-10.9); Hematocrit 40.2 VOL% (42.0-52.0); Hemoglobin 13.4 GM/DL (14.0-18.0); Immature Granulocytes % 0.9 %; Immature Granulocytes Absolute 0.14 #; Lymphocytes # 1.4 10*3/uL (1.4-4.0); Lymphocytes % 9.3 % (21.2-54.2); Mean Corpuscular HGB Conc 33.3 GM/DL (32-36); Mean Corpuscular Volume 87.4 FL (87-102); Mean Platelet Volume 10.1 FL (9.6-12.0); Monocytes % 10.3 % (1.7-12.7); Neutrophils % 77.6 % (38.7-73.9); Platelet Count 320 T/CUMM (130-400); Red Cell Distribution Width 13.5 % (9.3-17.3)
[2021-04-11 12:16] LABS: Albumin 2.4 G/DL (3.4-5.0); Bilirubin,Total 0.6 MG/DL (0.20-1.00); Calcium 9.2 MG/DL (8.5-10.1); Osmolality,Calculated 268.7 MOS/KG (273-304); Potassium 3.3 MMOL/L (3.5-5.1); Total Protein 7.2 G/DL (6.4-8.2)
[2021-04-11 12:20] LABS: INR 1.2; PT Patient Result 13.6 SECS (10.5-12.0)
[2021-04-11 12:37] LABS: Anisocytosis 1+; Band Neutrophils 9 % (0-10); Eosinophils 1 % (0-10); Lymphocytes 8 % (20-55); Platelet Estimate Normal; Segmented Neutrophils 67 % (50-85); Total Cells Counted 100
[2021-04-11] MEDS ORDERED: cefTRIAXone 1,000 MG in SODIUM CHLORIDE 0.9% 100 ML IV STA (13:01)
[2021-04-11] MEDS ORDERED: AZITHROMYCIN 250 MG TABLET PO STA (13:01)
[2021-04-11] MEDS ORDERED: ONDANSETRON 4 MG/2 ML VIAL IV PRN (13:02)
[2021-04-11] MEDS: SODIUM CHLORIDE 0.9% 1,000 ML IV SCH ×2 (14:08→23:36)
[2021-04-11] MEDS: DOCUSATE SODIUM 100 MG CAPSULE PO SCH (23:36)
[2021-04-12] MEDS: DOCUSATE SODIUM 100 MG CAPSULE PO SCH ×2 (08:22→21:04)
[2021-04-12] MEDS: PANTOPRAZOLE 40 MG TABLET PO SCH (08:22)
[2021-04-12] MEDS: VILANTEROL INH SCH (10:05)
[2021-04-12] MEDS: UMECLIDINIUM INH SCH (10:05)
[2021-04-12] MEDS: SODIUM CHLOR 0.9% KCL 20 MEQ 20 MEQ/1,000 ML BAG IV SCH (10:26)
[2021-04-12] MEDS: cefTRIAXone 1,000 MG in SODIUM CHLORIDE 0.9% 100 ML IV SCH (10:28)
[2021-04-12] MEDS: FUROSEMIDE 40 MG/4 ML VIAL IV SCH (10:31)
[2021-04-12] MEDS: DILTIAZEM CD 180 MG CAPSULE PO SCH (10:31)
[2021-04-12] MEDS: ASPIRIN EC 81 MG TABLET PO SCH (10:31)
[2021-04-12] MEDS: CELECOXIB 200 MG CAPSULE PO SCH (10:31)
[2021-04-12] MEDS: APIXABAN 5 MG TABLET PO SCH ×2 (10:31→21:04)
[2021-04-12] MEDS: metOLazone 5 MG TABLET PO SCH (10:32)
[2021-04-12] MEDS: lisinopriL 10 MG TABLET PO SCH (10:32)
[2021-04-12] MEDS: AZITHROMYCIN 250 MG TABLET PO SCH (10:32)
[2021-04-12] MEDS: DIGOXIN 0.125 MG TABLET PO SCH (10:32)
[2021-04-12] MEDS: ALBUTEROL/IPRATROPIUM 3 ML NEB RESP TX SCH ×4 (10:55→23:20)
[2021-04-12] MEDS ORDERED: AMIODARONE 200 MG TABLET PO SCH (11:00)
[2021-04-12] MEDS: POTASSIUM CHLORIDE RIDER 10 MEQ/100 ML PREMIX IV SCH ×2 (11:14→12:21)
[2021-04-12] MEDS: SODIUM CHLORIDE 0.9% 1,000 ML IV SCH (16:45)
[2021-04-12] MEDS: SIMVASTATIN 40 MG TABLET PO SCH (21:04)
[2021-04-12] MEDS: MONTELUKAST 10 MG TABLET PO SCH (21:04)
[2021-04-13] MEDS: SODIUM CHLOR 0.9% KCL 20 MEQ 20 MEQ/1,000 ML BAG IV SCH (00:46)
[2021-04-13] MEDS: ALBUTEROL/IPRATROPIUM 3 ML NEB RESP TX SCH ×5 (03:10→19:20)
[2021-04-13 05:41] LABS: Basophils % 0.3 % (0.0-0.8); Eosinophils # 0.2 10*3/uL (0.0-0.87); Eosinophils % 1.3 % (0.00-10.9); Hematocrit 35.3 VOL% (42.0-52.0); Hemoglobin 11.5 GM/DL (14.0-18.0); Immature Granulocytes % 0.9 %; Immature Granulocytes Absolute 0.14 #; Lymphocytes # 1.3 10*3/uL (1.4-4.0); Lymphocytes % 8.6 % (21.2-54.2); Mean Corpuscular HGB Conc 32.6 GM/DL (32-36); Mean Corpuscular Volume 89.1 FL (87-102); Neutrophils % 77.9 % (38.7-73.9); Platelet Count 299 T/CUMM (130-400); Red Blood Count 3.96 MC/CUMM (3.8-5.5); Red Cell Distribution Width 13.9 % (9.3-17.3); White Blood Count 14.9 T/CUMM (4-12)
[2021-04-13 05:53] LABS: Albumin 1.8 G/DL (3.4-5.0); Bilirubin,Total 0.7 MG/DL (0.20-1.00); Calcium 8.5 MG/DL (8.5-10.1); Osmolality,Calculated 271.2 MOS/KG (273-304); Potassium 3.1 MMOL/L (3.5-5.1); Total Protein 6.1 G/DL (6.4-8.2)
[2021-04-13 06:04] LABS: Lymphocytes 6 % (20-55); Platelet Estimate Adequate; Segmented Neutrophils 85 % (50-85); Total Cells Counted 100
[2021-04-13] MEDS: CELECOXIB 200 MG CAPSULE PO SCH (09:26)
[2021-04-13] MEDS: AZITHROMYCIN 250 MG TABLET PO SCH (09:27)
[2021-04-13] MEDS: ASPIRIN EC 81 MG TABLET PO SCH (09:27)
[2021-04-13] MEDS: DOCUSATE SODIUM 100 MG CAPSULE PO SCH ×2 (09:28→20:12)
[2021-04-13] MEDS: APIXABAN 5 MG TABLET PO SCH ×2 (09:28→20:12)
[2021-04-13] MEDS: DILTIAZEM CD 180 MG CAPSULE PO SCH (09:28)
[2021-04-13] MEDS: PANTOPRAZOLE 40 MG TABLET PO SCH (09:28)
[2021-04-13] MEDS: DIGOXIN 0.125 MG TABLET PO SCH (09:29)
[2021-04-13] MEDS: lisinopriL 10 MG TABLET PO SCH (09:30)
[2021-04-13] MEDS: cefTRIAXone 1,000 MG in SODIUM CHLORIDE 0.9% 100 ML IV SCH (09:30)
[2021-04-13] MEDS: metOLazone 5 MG TABLET PO SCH (09:35)
[2021-04-13] MEDS: VILANTEROL INH SCH (09:35)
[2021-04-13] MEDS: UMECLIDINIUM INH SCH (09:35)
[2021-04-13] MEDS: FUROSEMIDE 40 MG/4 ML VIAL IV SCH ×2 (09:39→15:26)
[2021-04-13] MEDS ORDERED: ALBUTEROL/IPRATROPIUM 3 ML NEB RESP TX ONE (09:50)
[2021-04-13] MEDS: methylPREDNISolone SOD SUC 40 MG/1 ML VIAL IV SCH ×2 (10:24→18:36)
[2021-04-13] MEDS: CLINDAMYCIN INJ 600 MG/50 ML PREMIX IV SCH ×2 (10:34→18:25)
[2021-04-13] MEDS: CLORAZEPATE 3.75 MG TABLET PO PRN ×2 (10:34→20:12)
[2021-04-13] MEDS: SIMVASTATIN 40 MG TABLET PO SCH (20:11)
[2021-04-13] MEDS: MONTELUKAST 10 MG TABLET PO SCH (20:12)
[2021-04-14] MEDS: ALBUTEROL/IPRATROPIUM 3 ML NEB RESP TX SCH ×7 (01:05→22:07)
[2021-04-14 01:15] LABS: Calcium 9.4 MG/DL (8.5-10.1); Osmolality,Calculated 286.8 MOS/KG (273-304)
[2021-04-14] MEDS: CLINDAMYCIN INJ 600 MG/50 ML PREMIX IV SCH ×3 (01:44→17:48)
[2021-04-14] MEDS: methylPREDNISolone SOD SUC 40 MG/1 ML VIAL IV SCH ×3 (01:44→17:48)
[2021-04-14 04:56] LABS: Basophils % 0.1 % (0.0-0.8); Hematocrit 37.4 VOL% (42.0-52.0); Hemoglobin 12.3 GM/DL (14.0-18.0); Immature Granulocytes % 0.6 %; Immature Granulocytes Absolute 0.11 #; Lymphocytes # 0.5 10*3/uL (1.4-4.0); Mean Corpuscular HGB Conc 32.9 GM/DL (32-36); Mean Corpuscular Volume 87.2 FL (87-102); Mean Platelet Volume 9.4 FL (9.6-12.0); Monocytes % 7.6 % (1.7-12.7); Neutrophils % 88.7 % (38.7-73.9); Platelet Count 329 T/CUMM (130-400); Red Blood Count 4.29 MC/CUMM (3.8-5.5); Red Cell Distribution Width 13.6 % (9.3-17.3); White Blood Count 17.2 T/CUMM (4-12)
[2021-04-14 05:14] LABS: Albumin 1.9 G/DL (3.4-5.0); Bilirubin,Total 0.8 MG/DL (0.20-1.00); Calcium 9.1 MG/DL (8.5-10.1); Osmolality,Calculated 287.7 MOS/KG (273-304); Potassium 2.8 MMOL/L (3.5-5.1); Total Protein 6.7 G/DL (6.4-8.2)
[2021-04-14 05:18] LABS: Band Neutrophils 1 % (0-10); Hypochromia Slight; Lymphocytes 5 % (20-55); Microcytosis Slight; Platelet Estimate Adequate; Segmented Neutrophils 89 % (50-85); Total Cells Counted 100
[2021-04-14] MEDS: CLORAZEPATE 3.75 MG TABLET PO PRN ×2 (05:47→20:06)
[2021-04-14] MEDS: POTASSIUM CHLORIDE RIDER 10 MEQ/100 ML PREMIX IV PRN ×6 (06:15→23:08)
[2021-04-14] MEDS: DOCUSATE SODIUM 100 MG CAPSULE PO SCH ×2 (08:52→21:00)
[2021-04-14] MEDS: FUROSEMIDE 40 MG/4 ML VIAL IV SCH (08:52)
[2021-04-14] MEDS: PANTOPRAZOLE 40 MG TABLET PO SCH (08:53)
[2021-04-14] MEDS: DIGOXIN 0.125 MG TABLET PO SCH (08:53)
[2021-04-14] MEDS: ASPIRIN EC 81 MG TABLET PO SCH (08:53)
[2021-04-14] MEDS: metOLazone 5 MG TABLET PO SCH (08:53)
[2021-04-14] MEDS: APIXABAN 5 MG TABLET PO SCH ×3 (08:54→21:00)
[2021-04-14] MEDS: AZITHROMYCIN 250 MG TABLET PO SCH (08:54)
[2021-04-14] MEDS: lisinopriL 10 MG TABLET PO SCH (08:58)
[2021-04-14] MEDS: DILTIAZEM CD 180 MG CAPSULE PO SCH (09:02)
[2021-04-14] MEDS: cefTRIAXone 1,000 MG in SODIUM CHLORIDE 0.9% 100 ML IV SCH (09:10)
[2021-04-14] MEDS: UMECLIDINIUM INH SCH (09:11)
[2021-04-14] MEDS: VILANTEROL INH SCH (09:11)
[2021-04-14] MEDS: CELECOXIB 200 MG CAPSULE PO SCH (09:38)
[2021-04-14] MEDS ORDERED: MAGNESIUM SULF RIDER 2 GM/50 ML PREMIX IV ONE (09:54)
[2021-04-14] MEDS: ASCORBIC ACID 500 MG TABLET PO SCH ×3 (17:00→21:00)
[2021-04-14] MEDS: SIMVASTATIN 40 MG TABLET PO SCH ×2 (20:06→21:00)
[2021-04-14] MEDS: MONTELUKAST 10 MG TABLET PO SCH ×2 (20:06→21:00)
[2021-04-14] MEDS: MORPHINE 4 MG/1 ML VIAL IV PRN (20:54)
[2021-04-15] MEDS: POTASSIUM CHLORIDE RIDER 10 MEQ/100 ML PREMIX IV PRN ×3 (00:10→08:45)
[2021-04-15] MEDS: methylPREDNISolone SOD SUC 40 MG/1 ML VIAL IV SCH ×4 (01:22→17:27)
[2021-04-15] MEDS: CLINDAMYCIN INJ 600 MG/50 ML PREMIX IV SCH ×3 (02:03→17:31)
[2021-04-15] MEDS: ALBUTEROL/IPRATROPIUM 3 ML NEB RESP TX SCH ×6 (02:35→23:55)
[2021-04-15 04:44] LABS: Basophils % 0.1 % (0.0-0.8); Hematocrit 37.7 VOL% (42.0-52.0); Hemoglobin 12.4 GM/DL (14.0-18.0); Immature Granulocytes % 1.1 %; Immature Granulocytes Absolute 0.22 #; Lymphocytes # 0.4 10*3/uL (1.4-4.0); Lymphocytes % 2.1 % (21.2-54.2); Mean Corpuscular HGB Conc 32.9 GM/DL (32-36); Mean Corpuscular Volume 87.5 FL (87-102); Mean Platelet Volume 9.6 FL (9.6-12.0); Monocytes % 7.7 % (1.7-12.7); Platelet Count 371 T/CUMM (130-400); Red Blood Count 4.31 MC/CUMM (3.8-5.5); White Blood Count 20.5 T/CUMM (4-12)
[2021-04-15 05:08] LABS: Hypochromia Slight; Lymphocytes 1 % (20-55); Microcytosis Slight; Platelet Estimate Adequate; Segmented Neutrophils 96 % (50-85); Total Cells Counted 100
[2021-04-15 05:21] LABS: Albumin 1.9 G/DL (3.4-5.0); Bilirubin,Total 0.5 MG/DL (0.20-1.00); Calcium 9.3 MG/DL (8.5-10.1); Potassium 3.7 MMOL/L (3.5-5.1); Total Protein 6.8 G/DL (6.4-8.2)
[2021-04-15] MEDS: MORPHINE 4 MG/1 ML VIAL IV PRN (07:30)
[2021-04-15] MEDS: FUROSEMIDE 40 MG/4 ML VIAL IV SCH (08:25)
[2021-04-15] MEDS: APIXABAN 5 MG TABLET PO SCH ×2 (08:26→21:03)
[2021-04-15] MEDS: ASPIRIN EC 81 MG TABLET PO SCH (08:26)
[2021-04-15] MEDS: DILTIAZEM CD 180 MG CAPSULE PO SCH (08:26)
[2021-04-15] MEDS: cefTRIAXone 1,000 MG in SODIUM CHLORIDE 0.9% 100 ML IV SCH (08:26)
[2021-04-15] MEDS: PANTOPRAZOLE 40 MG TABLET PO SCH (08:27)
[2021-04-15] MEDS: DOCUSATE SODIUM 100 MG CAPSULE PO SCH ×2 (08:27→21:03)
[2021-04-15] MEDS: metOLazone 5 MG TABLET PO SCH (08:28)
[2021-04-15] MEDS: ASCORBIC ACID 500 MG TABLET PO SCH ×2 (08:28→21:03)
[2021-04-15] MEDS: lisinopriL 10 MG TABLET PO SCH (08:29)
[2021-04-15] MEDS: UMECLIDINIUM INH SCH (08:29)
[2021-04-15] MEDS: VILANTEROL INH SCH (08:29)
[2021-04-15] MEDS: CLORAZEPATE 3.75 MG TABLET PO PRN (16:57)
[2021-04-15] MEDS: SIMVASTATIN 40 MG TABLET PO SCH (21:03)
[2021-04-15] MEDS: MONTELUKAST 10 MG TABLET PO SCH (21:03)
[2021-04-15] MEDS: ZINC OXIDE PASTE 113 GM TUBE TOP SCH (21:28)
[2021-04-16] MEDS: methylPREDNISolone SOD SUC 40 MG/1 ML VIAL IV SCH ×3 (01:39→17:36)
[2021-04-16] MEDS: CLINDAMYCIN INJ 600 MG/50 ML PREMIX IV SCH ×3 (01:39→17:37)
[2021-04-16] MEDS: ALBUTEROL/IPRATROPIUM 3 ML NEB RESP TX SCH ×6 (03:36→23:38)
[2021-04-16 03:45] LABS: Basophils % 0.1 % (0.0-0.8); Immature Granulocytes % 1.2 %; Lymphocytes # 0.7 10*3/uL (1.4-4.0); Lymphocytes % 4.2 % (21.2-54.2); Mean Corpuscular HGB Conc 32.4 GM/DL (32-36); Mean Corpuscular Volume 89.8 FL (87-102); Mean Platelet Volume 9.9 FL (9.6-12.0); Monocytes % 7.1 % (1.7-12.7); Neutrophils % 87.4 % (38.7-73.9); Platelet Count 369 T/CUMM (130-400); Red Blood Count 4.12 MC/CUMM (3.8-5.5); Red Cell Distribution Width 14.2 % (9.3-17.3); White Blood Count 16.9 T/CUMM (4-12)
[2021-04-16 04:03] LABS: Calcium 9.4 MG/DL (8.5-10.1); Osmolality,Calculated 302.4 MOS/KG (273-304); Potassium 3.6 MMOL/L (3.5-5.1)
[2021-04-16 04:15] LABS: Band Neutrophils 1 % (0-10); Hypochromia 1+; Lymphocytes 2 % (20-55); Microcytosis 1+; Segmented Neutrophils 91 % (50-85); Total Cells Counted 100
[2021-04-16 04:16] LABS: Platelet Estimate Normal
[2021-04-16] MEDS: DILTIAZEM CD 180 MG CAPSULE PO SCH (08:01)
[2021-04-16] MEDS: ASPIRIN EC 81 MG TABLET PO SCH (08:01)
[2021-04-16] MEDS: ZINC OXIDE PASTE 113 GM TUBE TOP SCH ×2 (08:01→20:34)
[2021-04-16] MEDS: DOCUSATE SODIUM 100 MG CAPSULE PO SCH ×2 (08:01→20:30)
[2021-04-16] MEDS: APIXABAN 5 MG TABLET PO SCH ×2 (08:01→20:31)
[2021-04-16] MEDS: UMECLIDINIUM INH SCH (08:02)
[2021-04-16] MEDS: DIGOXIN 0.125 MG TABLET PO SCH (08:02)
[2021-04-16] MEDS: cefTRIAXone 1,000 MG in SODIUM CHLORIDE 0.9% 100 ML IV SCH (08:02)
[2021-04-16] MEDS: FUROSEMIDE 40 MG/4 ML VIAL IV SCH (08:02)
[2021-04-16] MEDS: metOLazone 5 MG TABLET PO SCH (08:02)
[2021-04-16] MEDS: VILANTEROL INH SCH (08:02)
[2021-04-16] MEDS: lisinopriL 10 MG TABLET PO SCH (08:02)
[2021-04-16] MEDS: PANTOPRAZOLE 40 MG TABLET PO SCH (08:02)
[2021-04-16] MEDS: ASCORBIC ACID 500 MG TABLET PO SCH ×2 (08:02→20:30)
[2021-04-16] MEDS: POTASSIUM CHLORIDE 20 MEQ TABLET PO PRN ×2 (08:09→15:41)
[2021-04-16] MEDS: CLORAZEPATE 3.75 MG TABLET PO PRN (15:41)
[2021-04-16] MEDS: SIMVASTATIN 40 MG TABLET PO SCH (20:30)
[2021-04-16] MEDS: MONTELUKAST 10 MG TABLET PO SCH (20:31)
[2021-04-17] MEDS: methylPREDNISolone SOD SUC 40 MG/1 ML VIAL IV SCH ×3 (01:56→18:02)
[2021-04-17] MEDS: CLINDAMYCIN INJ 600 MG/50 ML PREMIX IV SCH ×3 (01:56→18:10)
[2021-04-17] MEDS: ALBUTEROL/IPRATROPIUM 3 ML NEB RESP TX SCH ×6 (03:08→22:52)
[2021-04-17 05:02] LABS: Basophils # 0.1 10*3/uL (0.0-0.2); Basophils % 0.4 % (0.0-0.8); Hematocrit 38.4 VOL% (42.0-52.0); Hemoglobin 12.6 GM/DL (14.0-18.0); Immature Granulocytes % 2.1 %; Immature Granulocytes Absolute 0.42 #; Lymphocytes # 1.1 10*3/uL (1.4-4.0); Lymphocytes % 5.6 % (21.2-54.2); Mean Corpuscular HGB Conc 32.8 GM/DL (32-36); Mean Corpuscular Volume 87.9 FL (87-102); Mean Platelet Volume 9.9 FL (9.6-12.0); Monocytes % 6.6 % (1.7-12.7); Neutrophils % 85.3 % (38.7-73.9); Platelet Count 461 T/CUMM (130-400); Red Blood Count 4.37 MC/CUMM (3.8-5.5); Red Cell Distribution Width 14.2 % (9.3-17.3); White Blood Count 19.7 T/CUMM (4-12)
[2021-04-17 05:23] LABS: Albumin 1.9 G/DL (3.4-5.0); Bilirubin,Total 0.7 MG/DL (0.20-1.00); Calcium 9.3 MG/DL (8.5-10.1); Osmolality,Calculated 302.8 MOS/KG (273-304); Potassium 3.9 MMOL/L (3.5-5.1); Total Protein 6.8 G/DL (6.4-8.2)
[2021-04-17 05:38] LABS: Lymphocytes 3 % (20-55); Segmented Neutrophils 90 % (50-85); Total Cells Counted 100
[2021-04-17 05:39] LABS: Hypochromia Slight; Microcytosis Slight; Platelet Estimate Adequate
[2021-04-17] MEDS: UMECLIDINIUM INH SCH (08:59)
[2021-04-17] MEDS: VILANTEROL INH SCH (08:59)
[2021-04-17] MEDS: FUROSEMIDE 40 MG/4 ML VIAL IV SCH (09:32)
[2021-04-17] MEDS: APIXABAN 5 MG TABLET PO SCH ×2 (09:32→20:05)
[2021-04-17] MEDS: DILTIAZEM CD 180 MG CAPSULE PO SCH (09:32)
[2021-04-17] MEDS: ASCORBIC ACID 500 MG TABLET PO SCH ×2 (09:32→20:05)
[2021-04-17] MEDS: DOCUSATE SODIUM 100 MG CAPSULE PO SCH ×2 (09:32→20:04)
[2021-04-17] MEDS: ASPIRIN EC 81 MG TABLET PO SCH (09:33)
[2021-04-17] MEDS: lisinopriL 10 MG TABLET PO SCH (09:33)
[2021-04-17] MEDS: metOLazone 5 MG TABLET PO SCH (09:33)
[2021-04-17] MEDS: PANTOPRAZOLE 40 MG TABLET PO SCH (09:33)
[2021-04-17] MEDS: cefTRIAXone 1,000 MG in SODIUM CHLORIDE 0.9% 100 ML IV SCH (09:35)
[2021-04-17] MEDS: POLYETHYLENE GLYCOL POWDER 17 GM PACK PO SCH (09:37)
[2021-04-17] MEDS: ZINC OXIDE PASTE 113 GM TUBE TOP SCH ×2 (09:39→20:04)
[2021-04-17] MEDS ORDERED: LACTULOSE 20 GM/30 ML UDCUP PO PRN (10:22)
[2021-04-17] MEDS: MONTELUKAST 10 MG TABLET PO SCH (20:04)
[2021-04-17] MEDS: SIMVASTATIN 40 MG TABLET PO SCH (20:04)
[2021-04-18] MEDS: CLINDAMYCIN INJ 600 MG/50 ML PREMIX IV SCH ×3 (02:21→18:24)
[2021-04-18] MEDS: methylPREDNISolone SOD SUC 40 MG/1 ML VIAL IV SCH ×3 (02:21→18:24)
[2021-04-18] MEDS: ALBUTEROL/IPRATROPIUM 3 ML NEB RESP TX SCH ×6 (03:22→22:39)
[2021-04-18 03:36] LABS: Basophils # 0.1 10*3/uL (0.0-0.2); Basophils % 0.4 % (0.0-0.8); Hematocrit 39.3 VOL% (42.0-52.0); Hemoglobin 12.8 GM/DL (14.0-18.0); Immature Granulocytes % 1.9 %; Immature Granulocytes Absolute 0.44 #; Lymphocytes % 4.5 % (21.2-54.2); Mean Corpuscular HGB Conc 32.6 GM/DL (32-36); Mean Corpuscular Volume 88.1 FL (87-102); Mean Platelet Volume 9.7 FL (9.6-12.0); Monocytes % 7.1 % (1.7-12.7); Neutrophils % 86.1 % (38.7-73.9); Platelet Count 489 T/CUMM (130-400); Red Blood Count 4.46 MC/CUMM (3.8-5.5); Red Cell Distribution Width 14.1 % (9.3-17.3); White Blood Count 22.7 T/CUMM (4-12)
[2021-04-18 03:51] LABS: Calcium 9.2 MG/DL (8.5-10.1); Osmolality,Calculated 297.7 MOS/KG (273-304); Potassium 3.4 MMOL/L (3.5-5.1)
[2021-04-18 04:05] LABS: Lymphocytes 3 % (20-55); Myelocytes 1 %; Segmented Neutrophils 91 % (50-85); Total Cells Counted 100
[2021-04-18 04:06] LABS: Hypochromia 1+; Microcytosis 1+; Platelet Estimate Increased
[2021-04-18 04:12] LABS: ABG Base Excess 17.9 MMOL/L (-2.5-2.5); ABG HCO3 42.2 MMOL/L (20-26); ABG PCO2 57.4 MM HG (35-48); ABG TCO2 39.1 MMOL/L (23-27)
[2021-04-18] MEDS: POTASSIUM CHLORIDE 20 MEQ TABLET PO PRN ×3 (04:46→09:10)
[2021-04-18] MEDS: cefTRIAXone 1,000 MG in SODIUM CHLORIDE 0.9% 100 ML IV SCH (09:07)
[2021-04-18] MEDS: DILTIAZEM CD 180 MG CAPSULE PO SCH (09:08)
[2021-04-18] MEDS: ASPIRIN EC 81 MG TABLET PO SCH (09:08)
[2021-04-18] MEDS: PANTOPRAZOLE 40 MG TABLET PO SCH (09:09)
[2021-04-18] MEDS: ASCORBIC ACID 500 MG TABLET PO SCH ×2 (09:09→20:34)
[2021-04-18] MEDS: POTASSIUM CHLORIDE 20 MEQ TABLET PO SCH (09:10)
[2021-04-18] MEDS: APIXABAN 5 MG TABLET PO SCH ×2 (09:11→20:34)
[2021-04-18] MEDS: DOCUSATE SODIUM 100 MG CAPSULE PO SCH ×2 (09:14→20:34)
[2021-04-18] MEDS: POLYETHYLENE GLYCOL POWDER 17 GM PACK PO SCH (09:15)
[2021-04-18] MEDS: VILANTEROL INH SCH (09:16)
[2021-04-18] MEDS: lisinopriL 10 MG TABLET PO SCH (09:16)
[2021-04-18] MEDS: UMECLIDINIUM INH SCH (09:16)
[2021-04-18] MEDS: ZINC OXIDE PASTE 113 GM TUBE TOP SCH ×2 (09:28→20:33)
[2021-04-18] MEDS ORDERED: LACTULOSE 20 GM/30 ML UDCUP PO ONE (10:36)
[2021-04-18] MEDS: MONTELUKAST 10 MG TABLET PO SCH (20:34)
[2021-04-18] MEDS: SIMVASTATIN 40 MG TABLET PO SCH (20:34)
[2021-04-19] MEDS: methylPREDNISolone SOD SUC 40 MG/1 ML VIAL IV SCH ×3 (01:40→18:22)
[2021-04-19] MEDS: CLINDAMYCIN INJ 600 MG/50 ML PREMIX IV SCH ×3 (01:40→18:12)
[2021-04-19] MEDS: ALBUTEROL/IPRATROPIUM 3 ML NEB RESP TX SCH ×6 (03:09→22:52)
[2021-04-19 06:19] LABS: Basophils # 0.1 10*3/uL (0.0-0.2); Basophils % 0.5 % (0.0-0.8); Hematocrit 41.3 VOL% (42.0-52.0); Hemoglobin 13.2 GM/DL (14.0-18.0); Immature Granulocytes % 3.3 %; Immature Granulocytes Absolute 0.88 #; Lymphocytes # 0.8 10*3/uL (1.4-4.0); Lymphocytes % 2.9 % (21.2-54.2); Mean Corpuscular Volume 89.4 FL (87-102); Mean Platelet Volume 10.3 FL (9.6-12.0); Monocytes % 5.3 % (1.7-12.7); Platelet Count 521 T/CUMM (130-400); Red Blood Count 4.62 MC/CUMM (3.8-5.5); Red Cell Distribution Width 14.5 % (9.3-17.3); White Blood Count 26.9 T/CUMM (4-12)
[2021-04-19 06:21] LABS: Albumin 1.9 G/DL (3.4-5.0); Bilirubin,Total 0.4 MG/DL (0.20-1.00); Calcium 9.4 MG/DL (8.5-10.1); Potassium 3.8 MMOL/L (3.5-5.1); Total Protein 6.5 G/DL (6.4-8.2)
[2021-04-19 06:55] LABS: Lymphocytes 2 % (20-55); Platelet Estimate Increased; Segmented Neutrophils 97 % (50-85); Total Cells Counted 100
[2021-04-19] MEDS: DOCUSATE SODIUM 100 MG CAPSULE PO SCH ×2 (08:47→20:10)
[2021-04-19] MEDS: DILTIAZEM CD 180 MG CAPSULE PO SCH (08:47)
[2021-04-19] MEDS: ASPIRIN EC 81 MG TABLET PO SCH (08:47)
[2021-04-19] MEDS: cefTRIAXone 1,000 MG in SODIUM CHLORIDE 0.9% 100 ML IV SCH (08:49)
[2021-04-19] MEDS: DIGOXIN 0.125 MG TABLET PO SCH (08:49)
[2021-04-19] MEDS: FUROSEMIDE 40 MG TABLET PO SCH (08:49)
[2021-04-19] MEDS: PANTOPRAZOLE 40 MG TABLET PO SCH (08:49)
[2021-04-19] MEDS: APIXABAN 5 MG TABLET PO SCH ×2 (08:49→20:10)
[2021-04-19] MEDS: POTASSIUM CHLORIDE 20 MEQ TABLET PO SCH (08:49)
[2021-04-19] MEDS: ZINC OXIDE PASTE 113 GM TUBE TOP SCH ×2 (08:49→20:11)
[2021-04-19] MEDS: POLYETHYLENE GLYCOL POWDER 17 GM PACK PO SCH (08:49)
[2021-04-19] MEDS: lisinopriL 10 MG TABLET PO SCH (08:49)
[2021-04-19] MEDS: UMECLIDINIUM INH SCH (08:50)
[2021-04-19] MEDS: VILANTEROL INH SCH (08:50)
[2021-04-19] MEDS: ASCORBIC ACID 500 MG TABLET PO SCH ×2 (08:50→20:10)
[2021-04-19] MEDS: LACTULOSE 20 GM/30 ML UDCUP PO SCH ×3 (12:19→20:22)
[2021-04-19 14:17] LABS: Amorphous Crystals,Urine Occasional /HPF (Few); Squamous Epithelial Cell,Urine Occasional /HPF (0-10)
[2021-04-19 14:19] LABS: Bilirubin,Urine Negative (Negative); Blood, Urine Negative (Negative); Glucose,Urine (UA) Negative (Negative); Ketones,Urine Negative (Negative); Nitrite,Urine Negative (Negative); Protein,Urine Negative (Negative); Urine Appearance Clear (Clear); Urine Color Yellow (Yellow); Urine Specific Gravity 1.015 (1.001-1.035); Urine Urobilinogen 0.2 eU/dL (<2.0); Urine pH 7.5 (4.5-8.0)
[2021-04-19] MEDS: MONTELUKAST 10 MG TABLET PO SCH (20:10)
[2021-04-19] MEDS: SIMVASTATIN 40 MG TABLET PO SCH (20:10)
[2021-04-20] MEDS: CLINDAMYCIN INJ 600 MG/50 ML PREMIX IV SCH ×3 (01:47→18:16)
[2021-04-20] MEDS: ALBUTEROL/IPRATROPIUM 3 ML NEB RESP TX SCH ×6 (03:52→23:05)
[2021-04-20] MEDS: methylPREDNISolone SOD SUC 40 MG/1 ML VIAL IV SCH (06:10)
[2021-04-20 06:11] LABS: Basophils % 0.1 % (0.0-0.8); Hemoglobin 14.1 GM/DL (14.0-18.0); Immature Granulocytes % 3.1 %; Immature Granulocytes Absolute 1.19 #; Lymphocytes # 1.3 10*3/uL (1.4-4.0); Lymphocytes % 3.2 % (21.2-54.2); Mean Corpuscular HGB Conc 32.8 GM/DL (32-36); Mean Corpuscular Volume 87.8 FL (87-102); Mean Platelet Volume 10.9 FL (9.6-12.0); Monocytes % 6.2 % (1.7-12.7); Neutrophils % 87.4 % (38.7-73.9); Platelet Count 542 T/CUMM (130-400); Red Cell Distribution Width 14.2 % (9.3-17.3)
[2021-04-20 06:15] LABS: Lymphocytes 9 % (20-55); Segmented Neutrophils 82 % (50-85); Total Cells Counted 100
[2021-04-20 06:16] LABS: Platelet Estimate Increased
[2021-04-20 06:30] LABS: Calcium 9.6 MG/DL (8.5-10.1); Osmolality,Calculated 283.5 MOS/KG (273-304); Potassium 3.7 MMOL/L (3.5-5.1)
[2021-04-20] MEDS: DIGOXIN 0.125 MG TABLET PO SCH (09:16)
[2021-04-20] MEDS: DOCUSATE SODIUM 100 MG CAPSULE PO SCH ×2 (09:16→21:13)
[2021-04-20] MEDS: DILTIAZEM CD 180 MG CAPSULE PO SCH (09:16)
[2021-04-20] MEDS: ASCORBIC ACID 500 MG TABLET PO SCH ×2 (09:16→21:13)
[2021-04-20] MEDS: ASPIRIN EC 81 MG TABLET PO SCH (09:17)
[2021-04-20] MEDS: CELECOXIB 200 MG CAPSULE PO SCH (09:17)
[2021-04-20] MEDS: PANTOPRAZOLE 40 MG TABLET PO SCH (09:17)
[2021-04-20] MEDS: APIXABAN 5 MG TABLET PO SCH ×2 (09:17→21:13)
[2021-04-20] MEDS: lisinopriL 10 MG TABLET PO SCH (09:17)
[2021-04-20] MEDS: POTASSIUM CHLORIDE 20 MEQ TABLET PO SCH (09:17)
[2021-04-20] MEDS: POLYETHYLENE GLYCOL POWDER 17 GM PACK PO SCH (09:18)
[2021-04-20] MEDS: ZINC OXIDE PASTE 113 GM TUBE TOP SCH (09:18)
[2021-04-20] MEDS: LACTULOSE 20 GM/30 ML UDCUP PO SCH ×2 (09:44→21:13)
[2021-04-20] MEDS: VILANTEROL INH SCH (09:45)
[2021-04-20] MEDS: UMECLIDINIUM INH SCH (09:45)
[2021-04-20] MEDS ORDERED: FUROSEMIDE 40 MG/4 ML VIAL IV ONE (10:35)
[2021-04-20] MEDS: CEFEPIME 1,000 MG in SODIUM CHLORIDE 0.9% 100 ML IV SCH ×3 (12:57→23:23)
[2021-04-20] MEDS: CALCIUM (CARBONATE) 500 MG TABLET PO SCH (17:09)
[2021-04-20] MEDS: SIMVASTATIN 40 MG TABLET PO SCH (21:13)
[2021-04-20] MEDS: MONTELUKAST 10 MG TABLET PO SCH (21:13)
[2021-04-21] MEDS: ZINC OXIDE PASTE 113 GM TUBE TOP SCH ×3 (01:34→22:38)
[2021-04-21] MEDS: ACETAMINOPHEN 325 MG TABLET PO PRN ×2 (01:37→06:28)
[2021-04-21] MEDS: ALBUTEROL/IPRATROPIUM 3 ML NEB RESP TX SCH ×6 (03:30→19:56)
[2021-04-21] MEDS: CEFEPIME 1,000 MG in SODIUM CHLORIDE 0.9% 100 ML IV SCH ×4 (05:20→23:24)
[2021-04-21 05:33] LABS: Basophils % 0.1 % (0.0-0.8); Hematocrit 43.3 VOL% (42.0-52.0); Hemoglobin 13.9 GM/DL (14.0-18.0); Immature Granulocytes % 3.5 %; Immature Granulocytes Absolute 1.33 #; Lymphocytes # 2.1 10*3/uL (1.4-4.0); Lymphocytes % 5.5 % (21.2-54.2); Mean Corpuscular HGB Conc 32.1 GM/DL (32-36); Mean Corpuscular Volume 88.7 FL (87-102); Mean Platelet Volume 10.5 FL (9.6-12.0); Monocytes % 4.9 % (1.7-12.7); Platelet Count 618 T/CUMM (130-400); Red Blood Count 4.88 MC/CUMM (3.8-5.5); Red Cell Distribution Width 14.3 % (9.3-17.3); White Blood Count 38.1 T/CUMM (4-12)
[2021-04-21 05:52] LABS: Bilirubin,Total 0.7 MG/DL (0.20-1.00); Calcium 9.2 MG/DL (8.5-10.1); Potassium 3.8 MMOL/L (3.5-5.1); Total Protein 6.6 G/DL (6.4-8.2)
[2021-04-21 06:10] LABS: Band Neutrophils 1 % (0-10); Hypochromia 1+; Lymphocytes 5 % (20-55); Segmented Neutrophils 91 % (50-85); Total Cells Counted 100
[2021-04-21 06:11] LABS: Microcytosis Slight; Ovalocytes Slight
[2021-04-21] MEDS ORDERED: predniSONE 20 MG TABLET PO SCH (09:00)
[2021-04-21] MEDS ORDERED: RABEPRAZOLE 20 MG PO SCH (09:00)
[2021-04-21] MEDS: HYDROmorphone 1 MG/1 ML SYRINGE IV PRN (10:14)
[2021-04-21] MEDS: LACTULOSE 20 GM/30 ML UDCUP PO SCH ×2 (10:40→22:38)
[2021-04-21] MEDS: POLYETHYLENE GLYCOL POWDER 17 GM PACK PO SCH (10:40)
[2021-04-21] MEDS: DILTIAZEM CD 180 MG CAPSULE PO SCH (10:41)
[2021-04-21] MEDS: MULTIVITAMIN (CENTRUM) TABLET PO SCH (10:41)
[2021-04-21] MEDS: CALCIUM (CARBONATE) 500 MG TABLET PO SCH ×2 (10:41→18:03)
[2021-04-21] MEDS: metOLazone 5 MG TABLET PO SCH (10:41)
[2021-04-21] MEDS: lisinopriL 10 MG TABLET PO SCH (10:41)
[2021-04-21] MEDS: ASPIRIN EC 81 MG TABLET PO SCH (10:41)
[2021-04-21] MEDS: PANTOPRAZOLE 40 MG TABLET PO SCH (10:41)
[2021-04-21] MEDS: DIGOXIN 0.125 MG TABLET PO SCH (10:42)
[2021-04-21] MEDS: FOLIC ACID 1 MG TABLET PO SCH (10:42)
[2021-04-21] MEDS: ASCORBIC ACID 500 MG TABLET PO SCH ×2 (10:42→22:39)
[2021-04-21] MEDS: APIXABAN 5 MG TABLET PO SCH ×2 (10:42→22:39)
[2021-04-21] MEDS: DOCUSATE SODIUM 100 MG CAPSULE PO SCH ×2 (10:42→22:38)
[2021-04-21] MEDS: CELECOXIB 200 MG CAPSULE PO SCH (10:42)
[2021-04-21] MEDS: POTASSIUM CHLORIDE 20 MEQ TABLET PO SCH (10:42)
[2021-04-21] MEDS: FLUTICASONE 50 MCG NASAL SPRAY 16 GM BOTTLE BOTH NARES SCH (10:43)
[2021-04-21] MEDS: UMECLIDINIUM INH SCH (11:29)
[2021-04-21] MEDS: VILANTEROL INH SCH (11:29)
[2021-04-21] MEDS ORDERED: MORPHINE 4 MG/1 ML VIAL IV ONE (17:34)
[2021-04-21] MEDS: methylPREDNISolone SOD SUC 40 MG/1 ML VIAL IV SCH (17:48)
[2021-04-21] MEDS: SIMVASTATIN 40 MG TABLET PO SCH (22:39)
[2021-04-21] MEDS: MONTELUKAST 10 MG TABLET PO SCH (22:39)
[2021-04-22] MEDS: HYDROmorphone 1 MG/1 ML SYRINGE IV PRN (01:07)
[2021-04-22] MEDS: methylPREDNISolone SOD SUC 40 MG/1 ML VIAL IV SCH ×2 (01:07→10:16)
[2021-04-22] MEDS: ALBUTEROL/IPRATROPIUM 3 ML NEB RESP TX SCH ×6 (01:54→20:30)
[2021-04-22] MEDS ORDERED: MORPHINE 4 MG/1 ML VIAL IV PRN (02:54)
[2021-04-22] MEDS ORDERED: MORPHINE 4 MG/1 ML VIAL IV ONE (05:00)
[2021-04-22] MEDS ORDERED: LORazepam 2 MG/1 ML VIAL IV ONE (05:49)
[2021-04-22] MEDS: CEFEPIME 1,000 MG in SODIUM CHLORIDE 0.9% 100 ML IV SCH ×2 (06:05→13:28)
[2021-04-22] MEDS: CALCIUM (CARBONATE) 500 MG TABLET PO SCH ×2 (08:16→17:33)
[2021-04-22] MEDS: DILTIAZEM CD 180 MG CAPSULE PO SCH (08:17)
[2021-04-22] MEDS: CELECOXIB 200 MG CAPSULE PO SCH (08:17)
[2021-04-22] MEDS: ASPIRIN EC 81 MG TABLET PO SCH (08:17)
[2021-04-22] MEDS: MULTIVITAMIN (CENTRUM) TABLET PO SCH (08:18)
[2021-04-22] MEDS: LACTULOSE 20 GM/30 ML UDCUP PO SCH (08:19)
[2021-04-22] MEDS: DOCUSATE SODIUM 100 MG CAPSULE PO SCH (08:19)
[2021-04-22] MEDS: ZINC OXIDE PASTE 113 GM TUBE TOP SCH (08:20)
[2021-04-22] MEDS: APIXABAN 5 MG TABLET PO SCH (08:20)
[2021-04-22] MEDS: FOLIC ACID 1 MG TABLET PO SCH (08:21)
[2021-04-22] MEDS: FLUTICASONE 50 MCG NASAL SPRAY 16 GM BOTTLE BOTH NARES SCH (08:21)
[2021-04-22] MEDS: POTASSIUM CHLORIDE 20 MEQ TABLET PO SCH (08:22)
[2021-04-22] MEDS: FUROSEMIDE 40 MG TABLET PO SCH (08:26)
[2021-04-22] MEDS: POLYETHYLENE GLYCOL POWDER 17 GM PACK PO SCH (08:26)
[2021-04-22] MEDS: UMECLIDINIUM INH SCH (08:27)
[2021-04-22] MEDS: VILANTEROL INH SCH (08:27)
[2021-04-22] MEDS: metOLazone 5 MG TABLET PO SCH (08:28)
[2021-04-22] MEDS: ASCORBIC ACID 500 MG TABLET PO SCH (08:28)
[2021-04-22 16:55] VITALS: BP 59/31
[2021-04-22] MEDS: PANTOPRAZOLE 40 MG TABLET PO SCH (17:27)
[2021-04-23] MEDS: ALBUTEROL/IPRATROPIUM 3 ML NEB RESP TX SCH (04:23)
== END 2021-04-22 17:10 | disposition expired | DRG 193 ==
LOC: N.ED 11:08 → N.EDINP 13:02 → SUATTDRO 13:02 → N.5E 18:15 → N.CC 04-13 10:10 → N.TELES 04-20 12:04
PROVIDERS: ADMIT Family Medicine; ATTEND Family Medicine